=== PATIENT | female | born 1960 | race Hispanic/Latino ===

== ENCOUNTER → 2017-11-26 | Outpatient (CLI) | payer OTHER ==
[~2017-11-26] MED LIST: CYCL10 PO; DAPA10TA PO; DILT120T15 PO; ERGO500014 PO; FURO20TA4 PO; HYDR25TA PO; LINA145C PO; MELO-108 PO; METF500T PO; NAPR-1023 PO; PANT40TA25 PO; TRAZ-144 PO
[2017-11-26 16:52] LABS: BASOPHILS % (AUTO) 0.9 % (0.0-5.0); EOSINOPHILS % (AUTO) 6.6 % (0.0-8.0); HEMATOCRIT 39.1 % (36-48); LYMPHOCYTES % (AUTO) 27.8 % (21.0-51.0); MEAN CORPUSCULAR HEMOGLOBIN 30.7 pg (27.0-33.0); MEAN CORPUSCULAR HGB CONC 33.5 g/dL (32.0-36.0); MEAN CORPUSCULAR VOLUME 91.8 fL (79-99); MONOCYTES % (AUTO) 5.6 % (3.0-13.0); NEUTROPHILS % (AUTO) 59.1 % (40.0-77.0); PLATELET COUNT (AUTO) 407 K/uL (130-400); RED BLOOD CELL COUNT(AUTO) 4.26 MIL/uL (4.00-5.50); RED CELL DISTRIBUTION WIDTH 15.8 % (11.0-15.5); WHITE BLOOD COUNT (AUTO) 10.9 K/uL (4.8-10.8)
[2017-11-26 17:52] LABS: ERYTHROCYTE SEDIMENTATION RATE 25 MM/HR (0-15)
== END | disposition home or self-care (01) ==
LOC: LAB 16:23
PROVIDERS: ATTEND Orthopaedic Surgery
DX: M75.101 Unspecified rotator cuff tear or rupture of right shoulder, not specified as traumatic (principal); M25.571 Pain in right ankle and joints of right foot
CPT/HCPCS: 36415; 85025; 85651; 86141

== ENCOUNTER → 2017-12-31 | Outpatient (CLI) | payer OTHER ==
[2017-12-31 11:01] LABS: HEMOGLOBIN A1C 5.8 % (4.0-6.0)
[2017-12-31 11:12] LABS: ALBUMIN 3.9 g/dL (3.5-5.0); BILIRUBIN,TOTAL 0.3 mg/dL (0.2-1.0); CREATININE 0.6 mg/dL (0.5-1.5); POTASSIUM 3.5 mmol/L (3.5-5.1); TOTAL PROTEIN, SERUM 7.7 g/dL (6.0-8.3)
== END | disposition home or self-care (01) ==
LOC: LAB 09:42
PROVIDERS: ATTEND Internal Medicine
DX: M25.561 Pain in right knee (principal); M25.562 Pain in left knee; I10 Essential (primary) hypertension; E11.9 Type 2 diabetes mellitus without complications; E78.00 Pure hypercholesterolemia, unspecified; E55.9 Vitamin D deficiency, unspecified
CPT/HCPCS: 36415; 73560; 80053; 80061; 82043; 82306; 82570; 83036

== ENCOUNTER → 2018-01-07 | Outpatient (CLI) | payer OTHER | END | disposition home or self-care (01) | LOC: RAH 11:21 | PROVIDERS: ATTEND Internal Medicine | DX: M16.11 Unilateral primary osteoarthritis, right hip (principal); M17.0 Bilateral primary osteoarthritis of knee; G89.29 Other chronic pain | CPT/HCPCS: 73502; 73560 ==

== ENCOUNTER 2018-01-31 11:20 | Inpatient (IN) | payer OTHER ==
[~2018-01-31] VITALS: Ht 170.2 cm; Wt 96.8 kg
[~2018-01-31 11:20] MED LIST changes: -TRAZ-144 PO; +TRAZ-185 PO
[2018-01-31] MEDS ORDERED: HYDROCODONE/ACETAMINOPHEN 5/325 MG TAB ONE (11:48)
[2018-01-31 12:02] LABS: BASOPHILS % (AUTO) 0.5 % (0.0-5.0); HEMATOCRIT 39.3 % (36-48); LYMPHOCYTES % (AUTO) 13.4 % (21.0-51.0); MEAN CORPUSCULAR HEMOGLOBIN 30.7 pg (27.0-33.0); MEAN CORPUSCULAR HGB CONC 33.8 g/dL (32.0-36.0); MEAN CORPUSCULAR VOLUME 90.7 fL (79-99); MONOCYTES % (AUTO) 7.1 % (3.0-13.0); PLATELET COUNT (AUTO) 373 K/uL (130-400); RED BLOOD CELL COUNT(AUTO) 4.34 MIL/uL (4.00-5.50); RED CELL DISTRIBUTION WIDTH 14.4 % (11.0-15.5); WHITE BLOOD COUNT (AUTO) 14.1 K/uL (4.8-10.8)
[2018-01-31 12:21] LABS: CREATININE 0.6 mg/dL (0.5-1.5)
[2018-01-31 12:23] LABS: POTASSIUM 2.9 mmol/L (3.5-5.1)
[2018-01-31 12:28] LABS: HIGH SENSITIVITY CRP 9.21 mg/L (0.0-3.0); URIC ACID 5.6 mg/dL (2.6-7.2)
[2018-01-31] MEDS ORDERED: POTASSIUM BICARB/CIT AC 25 MEQ TABLET.EFF ONE (12:54)
[2018-01-31 13:06] LABS: ERYTHROCYTE SEDIMENTATION RATE 28 MM/HR (0-15)
[2018-01-31] MEDS ORDERED: LIDOCAINE/PRILOCAINE CREAM 5GM TUBE TP ONE (14:20)
[2018-01-31] MEDS ORDERED: LIDOCAINE HCL 1% 20 ML VIAL ONE (14:34)
[2018-01-31] MEDS ORDERED: SODIUM CHLORIDE 0.9% 50 ML IV ONE (15:54)
[2018-01-31] MEDS ORDERED: CEFTRIAXONE SODIUM 1 GM ONE (15:54)
[2018-01-31] MEDS ORDERED: LEVOFLOXACIN 500 MG TABLET PO SCH (16:15)
[2018-01-31] MEDS ORDERED: POTASSIUM CHLORIDE 10% ELIXIR 20 MEQ/15 ML UDCUP PO PRN (16:30)
[2018-01-31] MEDS ORDERED: VANCOMYCIN PROTOCOL PER PHARMACY IV PRN (16:30)
[2018-01-31] MEDS ORDERED: ACETAMINOPHEN-CODEINE 300/30MG TAB PO PRN (16:30)
[2018-01-31] MEDS ORDERED: MAG HYDROX/AL HYDROX/SIMETH ES 30 ML SUSP UDCUP PO PRN (16:30)
[2018-01-31] MEDS ORDERED: ONDANSETRON HCL MDV 20ML 2 MG/ML VIAL IV PRN (16:30)
[2018-01-31] MEDS ORDERED: POTASSIUM CHLORIDE 20 MEQ ERTAB PO PRN (16:30)
[2018-01-31] MEDS: LEVOFLOXACIN 500 MG/D5W 100 ML 100 ML IV SCH (16:30)
[2018-01-31] MEDS ORDERED: NITROGLYCERIN 0.4 MG SL TAB SL PRN (16:30)
[2018-01-31] MEDS ORDERED: LACTULOSE 20 GM/30 ML UDCUP PO PRN (16:30)
[2018-01-31] MEDS ORDERED: MORPHINE SULFATE 4 MG/1ML SYG IV PRN (16:30)
[2018-01-31] MEDS ORDERED: GUAIFENESIN-DM 200/20 MG 10 ML PO PRN (16:30)
[2018-01-31] MEDS ORDERED: HYDRALAZINE HCL 20 MG/ML VIAL IV PRN (16:30)
[2018-01-31] MEDS ORDERED: ACETAMINOPHEN 325 MG TAB PO PRN ×2 (16:30)
[2018-01-31] MEDS ORDERED: LEVOFLOXACIN 500 MG/D5W 100 ML 100 ML ONE (17:17)
[2018-01-31] MEDS ORDERED: ONDANSETRON HCL MDV 20ML 2 MG/ML VIAL ONE (17:32)
[2018-01-31] MEDS ORDERED: MORPHINE SULFATE 4 MG/1ML SYG ONE ×2 (17:33→18:58)
[2018-01-31] MEDS ORDERED: VANCOMYCIN 1GM+NS 250ML 250 ML IV SCH (18:00)
[2018-01-31] MEDS ORDERED: LIDOCAINE 1%-EPI 1:100,000 20 ML VIAL IJ ONE (18:03)
[2018-01-31 19:25] VITALS: BP 131/69
[2018-01-31 20:28] LABS: APPEARANCE BODY FLUID CLOUDY (CLEAR); COLOR,BODY FLUID LT YELLOW (LT YELLOW); SPECIMENTYPE,BODY FLUID SYNOVIAL FLUID; TOTAL VOLUME,BODY FLUID 20 mL
[2018-01-31] MEDS ORDERED: COMPOUND IV REFRIGERATED 1 EACH IVSOLN MISC PRN (20:30)
[2018-01-31 20:41] LABS: BODY FLUID RBC 250 /cu. mm.; BODY FLUID WBC 33300 /cu. mm.
[2018-01-31 20:42] LABS: GLUCOSE,BODY FLUID 66 mg/dL (1-40)
[2018-01-31 20:54] LABS: BF LYMPHOCYTE 1 %
[2018-01-31] MEDS: VANCOMYCIN 1.5 GM in SODIUM CHLORIDE 0.9% 250 ML IV SCH (21:14)
[2018-01-31] MEDS: FAMOTIDINE 20MG TAB 20 MG TAB PO SCH (21:18)
[2018-01-31] MEDS: NAPROXEN 500 MG TABLET PO SCH (21:18)
[2018-01-31 23:14] LABS: CRYSTALS, SYNOVIAL FLUID SEE SEPARATE REPORT
[2018-02-01] VITALS (29 sets, daily range): BP systolic 91–138; BP diastolic 51–79
[2018-02-01 05:30] LABS: HEMATOCRIT 36.5 % (36-48); MEAN CORPUSCULAR HEMOGLOBIN 31.6 pg (27.0-33.0); MEAN CORPUSCULAR HGB CONC 34.4 g/dL (32.0-36.0); MEAN CORPUSCULAR VOLUME 91.7 fL (79-99); PLATELET COUNT (AUTO) 335 K/uL (130-400); RED BLOOD CELL COUNT(AUTO) 3.98 MIL/uL (4.00-5.50); RED CELL DISTRIBUTION WIDTH 14.5 % (11.0-15.5); WHITE BLOOD COUNT (AUTO) 9.5 K/uL (4.8-10.8)
[2018-02-01 05:40] LABS: CREATININE 0.7 mg/dL (0.5-1.5)
[2018-02-01 05:47] LABS: INR 0.91 (0.85-1.15); PROTHROMBIN TIME 9.4 SEC (9.6-11.6)
[2018-02-01] MEDS: MORPHINE SULFATE 4 MG/1ML SYG IV PRN (06:03)
[2018-02-01] MEDS: POTASSIUM CHLORIDE 20MEQ/100ML 100 ML IV PRN ×2 (06:16→13:27)
[2018-02-01] MEDS: LIDOCAINE HCL-MPF 1% 2ML VIAL IVP PRN ×2 (06:16→13:27)
[2018-02-01] MEDS: SODIUM CHLORIDE 0.9% 1000ML 1,000 ML IV SCH ×3 (06:17→17:36)
[2018-02-01] MEDS: INSULIN HUMULIN R 100 UNIT/ML 3ML SQ SCH ×4 (07:30→21:00)
[2018-02-01] MEDS: FAMOTIDINE 20MG TAB 20 MG TAB PO SCH ×2 (09:00→20:27)
[2018-02-01] MEDS ORDERED: ENOXAPARIN SODIUM 40 MG/0.4 ML SYRINGE SQ SCH (09:00)
[2018-02-01] MEDS: VANCOMYCIN 1.5 GM in SODIUM CHLORIDE 0.9% 250 ML IV SCH ×3 (09:00→20:28)
[2018-02-01] MEDS: NAPROXEN 500 MG TABLET PO SCH ×2 (09:00→20:27)
[2018-02-01] MEDS ORDERED: FENTANYL CITRATE PF 50 MCG/1 ML 2ML VIAL ONE (10:35)
[2018-02-01] MEDS ORDERED: SUB TO ALBUTEROL 2.5MG/3ML NEBULES PER P&T IH ONE (11:26)
[2018-02-01] MEDS ORDERED: KETOROLAC TROMETHAMINE 30MG/ML ONE (11:57)
[2018-02-01] MEDS ORDERED: MEPERIDINE-PF 25 MG/ML SYG ONE (12:19)
[2018-02-01] MEDS: LEVOFLOXACIN 500 MG/D5W 100 ML 100 ML IV SCH (16:22)
[2018-02-01] MEDS: ACETAMINOPHEN-CODEINE 300/30MG TAB PO PRN (20:34)
[2018-02-01] MEDS: ENOXAPARIN SODIUM 40 MG/0.4 ML SYRINGE SQ SCH (20:37)
[2018-02-02] VITALS (7 sets, daily range): BP systolic 104–124; BP diastolic 58–72
[2018-02-02] MEDS: SODIUM CHLORIDE 0.9% 1000ML 1,000 ML IV SCH (03:30)
[2018-02-02] MEDS: INSULIN HUMULIN R 100 UNIT/ML 3ML SQ SCH ×4 (05:42→20:27)
[2018-02-02] MEDS: ACETAMINOPHEN-CODEINE 300/30MG TAB PO PRN ×2 (09:10→16:25)
[2018-02-02] MEDS: NAPROXEN 500 MG TABLET PO SCH ×2 (09:11→22:33)
[2018-02-02] MEDS: FAMOTIDINE 20MG TAB 20 MG TAB PO SCH ×2 (09:11→22:33)
[2018-02-02] MEDS: ENOXAPARIN SODIUM 40 MG/0.4 ML SYRINGE SQ SCH (09:11)
[2018-02-02] MEDS: VANCOMYCIN 1.5 GM in SODIUM CHLORIDE 0.9% 250 ML IV SCH ×2 (09:27→22:34)
[2018-02-02 10:54] LABS: HEMATOCRIT 35.8 % (36-48); MEAN CORPUSCULAR HGB CONC 34.5 g/dL (32.0-36.0); MEAN CORPUSCULAR VOLUME 92.7 fL (79-99); PLATELET COUNT (AUTO) 338 K/uL (130-400); RED BLOOD CELL COUNT(AUTO) 3.87 MIL/uL (4.00-5.50); RED CELL DISTRIBUTION WIDTH 14.6 % (11.0-15.5); WHITE BLOOD COUNT (AUTO) 10.1 K/uL (4.8-10.8)
[2018-02-02] MEDS ORDERED: CEFTRIAXONE 1GM/D5W 50ML 50 ML IV SCH (14:30)
[2018-02-02] MEDS ORDERED: CEFTRIAXONE SODIUM 1 GM IVP SCH (14:30)
[2018-02-02] MEDS: MORPHINE SULFATE 4 MG/1ML SYG IV PRN (22:41)
[2018-02-03 03:00] VITALS: BP 116/68
[2018-02-03] MEDS: INSULIN HUMULIN R 100 UNIT/ML 3ML SQ SCH ×2 (07:30→11:30)
[2018-02-03 08:00] VITALS: BP 126/76
[2018-02-03] MEDS: NAPROXEN 500 MG TABLET PO SCH (08:59)
[2018-02-03] MEDS: ENOXAPARIN SODIUM 40 MG/0.4 ML SYRINGE SQ SCH (09:00)
[2018-02-03] MEDS: ACETAMINOPHEN-CODEINE 300/30MG TAB PO PRN (09:00)
[2018-02-03] MEDS: FAMOTIDINE 20MG TAB 20 MG TAB PO SCH (09:00)
[2018-02-03] MEDS: VANCOMYCIN 1.5 GM in SODIUM CHLORIDE 0.9% 250 ML IV SCH (09:11)
[2018-02-03 11:53] LABS: INR 0.88 (0.85-1.15); PARTIAL THROMBOPLASTIN TIME 29.3 SEC (26.3-35.5); PROTHROMBIN TIME 9.3 SEC (9.6-11.6)
[2018-02-03 11:54] VITALS: BP 118/74
[2018-02-03 16:00] VITALS: BP 134/69
== END 2018-02-03 17:46 | disposition home or self-care (01) | DRG 550 ==
LOC: EDH 11:20 → EDHIP 16:04 → OBSVTOIN 16:04 → 4AH 18:19
PROVIDERS: ADMIT Internal Medicine; ATTEND Internal Medicine
PROC: 0S9D3ZZ Drainage of Left Knee Joint, Percutaneous Approach (ICD-10-PCS; principal; 2018-01-31)
PROC: 3E1U38Z Irrigation of Joints using Irrigating Substance, Percutaneous Approach (ICD-10-PCS; 2018-02-01)
DX: M00.9 Pyogenic arthritis, unspecified (principal); E11.9 Type 2 diabetes mellitus without complications; M19.90 Unspecified osteoarthritis, unspecified site; E66.9 Obesity, unspecified; M25.462 Effusion, left knee; E87.6 Hypokalemia; I10 Essential (primary) hypertension; I25.10 Atherosclerotic heart disease of native coronary artery without angina pectoris; Z90.710 Acquired absence of both cervix and uterus; Z68.33 Body mass index [BMI] 33.0-33.9, adult; Z88.8 Allergy status to other drugs, medicaments and biological substances; Z83.3 Family history of diabetes mellitus; Z80.42 Family history of malignant neoplasm of prostate
CPT/HCPCS: 36415; 73562; 80048; 80202; 82945; 82948; 84132; 84550; 85025; 85027; 85610; 85651; 85730; 86141; 87070; 87071; 87076; 87205; 89051; 89060; 93971; A4218; A4606; J0696; J1650; J1885; J1956; J2175; J2270; J3010; J3370; J3480; J3490; J7030

== ENCOUNTER → 2018-02-12 | Outpatient (CLI) | payer OTHER ==
[2018-02-12 10:27] LABS: EOSINOPHILS % (AUTO) 7.3 % (0.0-8.0); HEMATOCRIT 43.4 % (36-48); LYMPHOCYTES % (AUTO) 32.5 % (21.0-51.0); MEAN CORPUSCULAR HEMOGLOBIN 30.6 pg (27.0-33.0); MEAN CORPUSCULAR HGB CONC 33.3 g/dL (32.0-36.0); MEAN CORPUSCULAR VOLUME 92.1 fL (79-99); MONOCYTES % (AUTO) 5.8 % (3.0-13.0); NEUTROPHILS % (AUTO) 53.4 % (40.0-77.0); NUCLEATED RED BLOOD CELLS 0.1 % (0.0-0.19); PLATELET COUNT (AUTO) 481 K/uL (130-400); RED BLOOD CELL COUNT(AUTO) 4.71 MIL/uL (4.00-5.50); RED CELL DISTRIBUTION WIDTH 14.8 % (11.0-15.5); WHITE BLOOD COUNT (AUTO) 9.8 K/uL (4.8-10.8)
[2018-02-12 10:37] LABS: BILIRUBIN,TOTAL 0.3 mg/dL (0.2-1.0); CREATININE 0.6 mg/dL (0.5-1.5); CRP QUANTITATIVE 2.3 mg/L (0.00-9.0); POTASSIUM 3.1 mmol/L (3.5-5.1); TOTAL PROTEIN, SERUM 7.9 g/dL (6.0-8.3)
[2018-02-12 11:35] LABS: ERYTHROCYTE SEDIMENTATION RATE 26 MM/HR (0-15)
== END | disposition home or self-care (01) ==
LOC: LAB 09:43
PROVIDERS: ATTEND Internal Medicine
DX: I10 Essential (primary) hypertension (principal); E87.6 Hypokalemia; M17.12 Unilateral primary osteoarthritis, left knee; M05.79 Rheumatoid arthritis with rheumatoid factor of multiple sites without organ or systems involvement
CPT/HCPCS: 36415; 80053; 83735; 85025; 85651; 86140; 86431

== ENCOUNTER → 2018-03-03 | Outpatient (CLI) | payer OTHER ==
[2018-03-05 11:20] LABS: HEPATITIS A ANTIBODY IGM Negative (Negative); HEPATITIS B CORE IGM Positive (Negative); HEPATITIS Bs ANTIGEN SCREEN P Negative (Negative)
== END | disposition home or self-care (01) ==
LOC: LAB 10:00
PROVIDERS: ATTEND Internal Medicine
DX: M05.89 Other rheumatoid arthritis with rheumatoid factor of multiple sites (principal); Z79.899 Other long term (current) drug therapy
CPT/HCPCS: 36415; 80074

== ENCOUNTER 2018-03-26 23:03 | Emergency (ER) | payer OTHER | END 2018-03-26 23:43 | disposition home or self-care (01) | LOC: EDH 23:03 | DX: S63.592A Other specified sprain of left wrist, initial encounter (principal); S63.8X2A Sprain of other part of left wrist and hand, initial encounter; S80.01XA Contusion of right knee, initial encounter; E11.9 Type 2 diabetes mellitus without complications; I10 Essential (primary) hypertension; Z98.890 Other specified postprocedural states; Z90.49 Acquired absence of other specified parts of digestive tract; Z88.8 Allergy status to other drugs, medicaments and biological substances; W18.39XA Other fall on same level, initial encounter; Y93.01 Activity, walking, marching and hiking; Y92.89 Other specified places as the place of occurrence of the external cause; Y99.8 Other external cause status | CPT/HCPCS: 73110; 73562 ==

== ENCOUNTER → 2018-04-09 | Outpatient (CLI) | payer OTHER ==
[2018-04-09 12:11] LABS: BASOPHILS % (AUTO) 1.3 % (0.0-5.0); EOSINOPHILS % (AUTO) 10.1 % (0.0-8.0); HEMATOCRIT 40.2 % (36-48); LYMPHOCYTES % (AUTO) 31.9 % (21.0-51.0); MEAN CORPUSCULAR HEMOGLOBIN 31.3 pg (27.0-33.0); MEAN CORPUSCULAR VOLUME 92.2 fL (79-99); NEUTROPHILS % (AUTO) 48.7 % (40.0-77.0); PLATELET COUNT (AUTO) 368 K/uL (130-400); RED BLOOD CELL COUNT(AUTO) 4.36 MIL/uL (4.00-5.50); RED CELL DISTRIBUTION WIDTH 14.3 % (11.0-15.5); WHITE BLOOD COUNT (AUTO) 8.5 K/uL (4.8-10.8)
[2018-04-09 12:26] LABS: ALBUMIN 3.6 g/dL (3.5-5.0); BILIRUBIN,DIRECT 0.1 mg/dL (0.0-0.3); BILIRUBIN,TOTAL 0.3 mg/dL (0.2-1.0); TOTAL PROTEIN, SERUM 7.2 g/dL (6.0-8.3)
== END | disposition home or self-care (01) ==
LOC: LAB 11:09
PROVIDERS: ATTEND Internal Medicine
DX: M05.89 Other rheumatoid arthritis with rheumatoid factor of multiple sites (principal)
CPT/HCPCS: 36415; 80076; 85025

== ENCOUNTER → 2018-04-13 | Outpatient (CLI) | payer OTHER | END | disposition home or self-care (01) | LOC: RAH 15:28 | DX: Z12.31 Encounter for screening mammogram for malignant neoplasm of breast (principal) | CPT/HCPCS: 77067 ==

== ENCOUNTER → 2018-05-01 | Outpatient (CLI) | payer OTHER ==
[2018-05-01 09:07] LABS: HEMOGLOBIN A1C 5.9 % (4.0-6.0)
[2018-05-01 09:17] LABS: ALBUMIN 3.7 g/dL (3.5-5.0); BILIRUBIN,TOTAL 0.2 mg/dL (0.2-1.0); CREATININE 0.6 mg/dL (0.5-1.5); TOTAL PROTEIN, SERUM 7.3 g/dL (6.0-8.3)
[2018-05-01 09:45] LABS: POTASSIUM 2.8 mmol/L (3.5-5.1)
== END | disposition home or self-care (01) ==
LOC: RAH 08:34
PROVIDERS: ATTEND Internal Medicine
DX: S09.90XA Unspecified injury of head, initial encounter (principal); I10 Essential (primary) hypertension; E78.00 Pure hypercholesterolemia, unspecified; E11.9 Type 2 diabetes mellitus without complications; X58.XXXA Exposure to other specified factors, initial encounter; Y93.89 Activity, other specified; Y92.89 Other specified places as the place of occurrence of the external cause; Y99.8 Other external cause status
CPT/HCPCS: 36415; 70450; 80053; 80061; 83036

== ENCOUNTER → 2018-07-28 | Outpatient (CLI) | payer OTHER ==
[2018-07-28 14:38] LABS: BASOPHILS % (AUTO) 0.9 % (0.0-5.0); EOSINOPHILS % (AUTO) 9.9 % (0.0-8.0); HEMATOCRIT 39.6 % (36-48); LYMPHOCYTES % (AUTO) 20.6 % (21.0-51.0); MEAN CORPUSCULAR HGB CONC 33.1 g/dL (32.0-36.0); MEAN CORPUSCULAR VOLUME 93.7 fL (79-99); NEUTROPHILS % (AUTO) 61.6 % (40.0-77.0); PLATELET COUNT (AUTO) 351 K/uL (130-400); RED BLOOD CELL COUNT(AUTO) 4.23 MIL/uL (4.00-5.50); RED CELL DISTRIBUTION WIDTH 14.2 % (11.0-15.5); WHITE BLOOD COUNT (AUTO) 8.7 K/uL (4.8-10.8)
[2018-07-28 14:52] LABS: HEMOGLOBIN A1C 5.5 % (4.0-6.0)
[2018-07-28 14:54] LABS: ALBUMIN 3.3 g/dL (3.5-5.0); BILIRUBIN,TOTAL 0.2 mg/dL (0.2-1.0); CREATININE 0.7 mg/dL (0.5-1.5); POTASSIUM 3.3 mmol/L (3.5-5.1); TOTAL PROTEIN, SERUM 7.2 g/dL (6.0-8.3)
== END | disposition home or self-care (01) ==
LOC: LAB 10:38
PROVIDERS: ATTEND Internal Medicine
DX: I10 Essential (primary) hypertension (principal); E11.9 Type 2 diabetes mellitus without complications; M05.89 Other rheumatoid arthritis with rheumatoid factor of multiple sites; Z79.899 Other long term (current) drug therapy
CPT/HCPCS: 36415; 80053; 83036; 85025

== ENCOUNTER 2018-08-13 11:42 | Emergency (ER) | payer OTHER ==
[2018-08-13] MEDS ORDERED: OCTYL 2-CYANOACRYLATE 1 EACH TP ONE (13:37)
== END 2018-08-13 14:11 | disposition home or self-care (01) ==
LOC: EDH 11:42
DX: S01.81XA Laceration without foreign body of other part of head, initial encounter (principal); S80.211A Abrasion, right knee, initial encounter; E11.9 Type 2 diabetes mellitus without complications; I10 Essential (primary) hypertension; Z90.49 Acquired absence of other specified parts of digestive tract; Z88.8 Allergy status to other drugs, medicaments and biological substances; Z98.890 Other specified postprocedural states; W18.39XA Other fall on same level, initial encounter; Y93.01 Activity, walking, marching and hiking; Y92.89 Other specified places as the place of occurrence of the external cause; Y99.8 Other external cause status
CPT/HCPCS: 12051; 73562

== ENCOUNTER → 2018-08-25 | Outpatient (CLI) | payer OTHER ==
[2018-08-25 10:09] LABS: BASOPHILS % (AUTO) 2.3 % (0.0-5.0); EOSINOPHILS % (AUTO) 9.1 % (0.0-8.0); HEMATOCRIT 39.7 % (36-48); LYMPHOCYTES % (AUTO) 24.1 % (21.0-51.0); MEAN CORPUSCULAR HEMOGLOBIN 30.7 pg (27.0-33.0); MEAN CORPUSCULAR HGB CONC 33.3 g/dL (32.0-36.0); MEAN CORPUSCULAR VOLUME 92.2 fL (79-99); MONOCYTES % (AUTO) 7.2 % (3.0-13.0); NEUTROPHILS % (AUTO) 57.3 % (40.0-77.0); NUCLEATED RED BLOOD CELLS 0.1 % (0.0-0.19); PLATELET COUNT (AUTO) 330 K/uL (130-400); RED CELL DISTRIBUTION WIDTH 14.2 % (11.0-15.5); WHITE BLOOD COUNT (AUTO) 8.2 K/uL (4.8-10.8)
[2018-08-25 10:24] LABS: ALBUMIN 3.3 g/dL (3.5-5.0); BILIRUBIN,TOTAL 0.3 mg/dL (0.2-1.0); CREATININE 0.9 mg/dL (0.5-1.5); POTASSIUM 3.4 mmol/L (3.5-5.1); TOTAL PROTEIN, SERUM 7.3 g/dL (6.0-8.3)
== END | disposition home or self-care (01) ==
LOC: LAB 09:07
PROVIDERS: ATTEND Internal Medicine
DX: M05.89 Other rheumatoid arthritis with rheumatoid factor of multiple sites (principal); K21.9 Gastro-esophageal reflux disease without esophagitis; Z79.899 Other long term (current) drug therapy
CPT/HCPCS: 36415; 80053; 82955; 85025

== ENCOUNTER → 2018-09-15 | Outpatient (CLI) | payer OTHER | END | disposition home or self-care (01) | LOC: RAH 08:43 | PROVIDERS: ATTEND Orthopaedic Surgery | DX: M17.11 Unilateral primary osteoarthritis, right knee (principal); M25.461 Effusion, right knee; K21.9 Gastro-esophageal reflux disease without esophagitis | CPT/HCPCS: 73721 ==

== ENCOUNTER → 2018-11-17 | Outpatient (CLI) | payer OTHER ==
[2018-11-17 17:34] LABS: BASOPHILS % (AUTO) 1.2 % (0.0-5.0); EOSINOPHILS % (AUTO) 12.5 % (0.0-8.0); HEMATOCRIT 41.7 % (36-48); LYMPHOCYTES % (AUTO) 23.4 % (21.0-51.0); MEAN CORPUSCULAR HEMOGLOBIN 29.6 pg (27.0-33.0); MEAN CORPUSCULAR VOLUME 92.7 fL (79-99); NEUTROPHILS % (AUTO) 54.9 % (40.0-77.0); NUCLEATED RED BLOOD CELLS 0.1 % (0.0-0.19); PLATELET COUNT (AUTO) 387 K/uL (130-400); RED CELL DISTRIBUTION WIDTH 15.3 % (11.0-15.5); WHITE BLOOD COUNT (AUTO) 10.5 K/uL (4.8-10.8)
[2018-11-17 17:50] LABS: ALBUMIN 3.7 g/dL (3.5-5.0); BILIRUBIN,TOTAL 0.2 mg/dL (0.2-1.0); CREATININE 0.7 mg/dL (0.5-1.5); POTASSIUM 3.7 mmol/L (3.5-5.1); TOTAL PROTEIN, SERUM 7.5 g/dL (6.0-8.3)
== END | disposition home or self-care (01) ==
LOC: LAB 09:46
PROVIDERS: ATTEND Internal Medicine
DX: M05.79 Rheumatoid arthritis with rheumatoid factor of multiple sites without organ or systems involvement (principal); Z79.899 Other long term (current) drug therapy
CPT/HCPCS: 36415; 80053; 85025; 86480

== ENCOUNTER → 2019-02-12 | Outpatient (CLI) | payer OTHER ==
[2019-02-12 08:34] LABS: BASOPHILS % (AUTO) 0.9 % (0.0-5.0); EOSINOPHILS % (AUTO) 8.9 % (0.0-8.0); HEMATOCRIT 39.8 % (36-48); LYMPHOCYTES % (AUTO) 23.7 % (21.0-51.0); MEAN CORPUSCULAR HEMOGLOBIN 32.4 pg (27.0-33.0); MEAN CORPUSCULAR VOLUME 95.2 fL (79-99); MONOCYTES % (AUTO) 7.8 % (3.0-13.0); NEUTROPHILS % (AUTO) 58.7 % (40.0-77.0); NUCLEATED RED BLOOD CELLS 0.1 % (0.0-0.19); PLATELET COUNT (AUTO) 330 K/uL (130-400); RED BLOOD CELL COUNT(AUTO) 4.18 MIL/uL (4.00-5.50); RED CELL DISTRIBUTION WIDTH 15.8 % (11.0-15.5); WHITE BLOOD COUNT (AUTO) 6.7 K/uL (4.8-10.8)
[2019-02-12 08:43] LABS: HEMOGLOBIN A1C 5.6 % (4.0-6.0)
[2019-02-12 08:58] LABS: ALBUMIN 3.7 g/dL (3.5-5.0); BILIRUBIN,TOTAL 0.3 mg/dL (0.2-1.0); CREATININE 0.6 mg/dL (0.5-1.5); T4 (THYROXINE) 8.9 ug/dL (4.7-13.3); THYROID STIMULATING HORMONE 2.14 uIU/mL (0.36-3.74); TOTAL PROTEIN, SERUM 7.1 g/dL (6.0-8.3)
[2019-02-12 09:03] LABS: B-TYPE NATRIURETIC PEPTIDE < 5 pg/mL (0-100)
== END | disposition home or self-care (01) ==
LOC: LAB 02-10 12:05
PROVIDERS: ATTEND Internal Medicine Cardiovascular Disease
DX: E78.5 Hyperlipidemia, unspecified (principal); E11.9 Type 2 diabetes mellitus without complications; I10 Essential (primary) hypertension
CPT/HCPCS: 36415; 80053; 80061; 83036; 83880; 84436; 84439; 84443; 84479; 84481; 85025

== ENCOUNTER → 2019-03-15 | Outpatient (CLI) | payer OTHER ==
[~2019-03-15] MED LIST changes: +REGADENOSON 0.4 MG/5 ML PF SYG IVP SCH
== END | disposition home or self-care (01) ==
LOC: RAH 03-10 08:14
PROVIDERS: ATTEND Internal Medicine Cardiovascular Disease
DX: R07.89 Other chest pain (principal)
CPT/HCPCS: 78452; 93017; 96374; A9500 ×2; J2785

== ENCOUNTER 2019-03-20 22:49 | Emergency (ER) | payer OTHER ==
[~2019-03-20 22:49] MED LIST changes: -REGADENOSON 0.4 MG/5 ML PF SYG IVP SCH
[2019-03-20] MEDS ORDERED: ONDANSETRON HCL 4 MG/2 ML VIAL ONE (23:36)
[2019-03-20] MEDS ORDERED: KETOROLAC TROMETHAMINE 30MG/ML ONE (23:36)
== END 2019-03-21 01:28 | disposition home or self-care (01) ==
LOC: EDH 22:49
DX: S00.83XA Contusion of other part of head, initial encounter (principal); S70.01XA Contusion of right hip, initial encounter; E11.9 Type 2 diabetes mellitus without complications; I10 Essential (primary) hypertension; M06.9 Rheumatoid arthritis, unspecified; Z88.8 Allergy status to other drugs, medicaments and biological substances; Z91.041 Radiographic dye allergy status; Z90.49 Acquired absence of other specified parts of digestive tract; W18.39XA Other fall on same level, initial encounter; Y93.01 Activity, walking, marching and hiking; Y92.89 Other specified places as the place of occurrence of the external cause; Y99.8 Other external cause status
CPT/HCPCS: 70450; 70486; 72125; 73552; 96374; 96375; 99284; J1885; J2405

== ENCOUNTER → 2019-05-07 | Outpatient (CLI) | payer OTHER ==
[2019-05-07 17:26] LABS: BASOPHILS % (AUTO) 0.7 % (0.0-5.0); EOSINOPHILS % (AUTO) 5.4 % (0.0-8.0); HEMATOCRIT 42.6 % (36-48); LYMPHOCYTES % (AUTO) 33.8 % (21.0-51.0); MEAN CORPUSCULAR HEMOGLOBIN 30.7 pg (27.0-33.0); MEAN CORPUSCULAR HGB CONC 32.8 g/dL (32.0-36.0); MEAN CORPUSCULAR VOLUME 93.7 fL (79-99); MONOCYTES % (AUTO) 5.8 % (3.0-13.0); NEUTROPHILS % (AUTO) 54.3 % (40.0-77.0); PLATELET COUNT (AUTO) 421 K/uL (130-400); RED BLOOD CELL COUNT(AUTO) 4.55 MIL/uL (4.00-5.50); RED CELL DISTRIBUTION WIDTH 13.8 % (11.0-15.5); WHITE BLOOD COUNT (AUTO) 8.2 K/uL (4.8-10.8)
[2019-05-07 17:47] LABS: ALBUMIN 3.8 g/dL (3.5-5.0); BILIRUBIN,TOTAL 0.2 mg/dL (0.2-1.0); CREATININE 0.7 mg/dL (0.5-1.5); POTASSIUM 3.7 mmol/L (3.5-5.1); TOTAL PROTEIN, SERUM 7.1 g/dL (6.0-8.3)
== END | disposition home or self-care (01) ==
LOC: LAB 10:48
PROVIDERS: ATTEND Internal Medicine
DX: M05.79 Rheumatoid arthritis with rheumatoid factor of multiple sites without organ or systems involvement (principal); Z79.899 Other long term (current) drug therapy
CPT/HCPCS: 36415; 80053; 85025; 86480

== ENCOUNTER → 2019-07-13 | Outpatient (CLI) | payer OTHER | END | disposition home or self-care (01) | LOC: RAH 09:57 | PROVIDERS: ATTEND Internal Medicine | DX: R60.0 Localized edema (principal) | CPT/HCPCS: 93970 ==

== ENCOUNTER → 2019-07-15 | Outpatient (CLI) | payer OTHER ==
[2019-07-15 13:55] LABS: APPEARANCE BODY FLUID SLIGHTLY CLOUDY (CLEAR); COLOR,BODY FLUID YELLOW (LT YELLOW); SPECIMENTYPE,BODY FLUID SYNOVIAL; TOTAL VOLUME,BODY FLUID 20 mL
[2019-07-15 13:56] LABS: BODY FLUID RBC 1925 /cu. mm.; BODY FLUID WBC 74 /cu. mm.
[2019-07-15 14:01] LABS: BF LYMPHOCYTE 78 %; BF MESOTHELIAL 10 %; BF MONOCYTE 2 %
[2019-07-15 21:20] LABS: CRYSTALS, SYNOVIAL FLUID SEE SEPARATE REPORT
== END | disposition home or self-care (01) ==
LOC: LAB 10:59
PROVIDERS: ATTEND Orthopaedic Surgery
DX: M25.461 Effusion, right knee (principal)
CPT/HCPCS: 87071; 87076; 87205; 89051; 89060

== ENCOUNTER → 2019-10-01 | Outpatient (CLI) | payer OTHER ==
[2019-10-01 09:34] LABS: BASOPHILS % (AUTO) 0.8 % (0.0-5.0); HEMATOCRIT 44.4 % (36-48); LYMPHOCYTES % (AUTO) 25.7 % (21.0-51.0); MEAN CORPUSCULAR HEMOGLOBIN 31.6 pg (27.0-33.0); MEAN CORPUSCULAR HGB CONC 33.7 g/dL (32.0-36.0); MEAN CORPUSCULAR VOLUME 93.8 fL (79-99); MONOCYTES % (AUTO) 7.3 % (3.0-13.0); NEUTROPHILS % (AUTO) 58.2 % (40.0-77.0); PLATELET COUNT (AUTO) 333 K/uL (130-400); RED BLOOD CELL COUNT(AUTO) 4.73 MIL/uL (4.00-5.50); RED CELL DISTRIBUTION WIDTH 14.5 % (11.0-15.5); WHITE BLOOD COUNT (AUTO) 8.4 K/uL (4.8-10.8)
[2019-10-01 09:53] LABS: INR 0.91 (0.85-1.15); PARTIAL THROMBOPLASTIN TIME 26.4 SEC (26.3-35.5); PROTHROMBIN TIME 9.6 SEC (9.6-11.6)
[2019-10-01 09:56] LABS: ALBUMIN 3.9 g/dL (3.5-5.0); BILIRUBIN,TOTAL 0.4 mg/dL (0.2-1.0); CREATININE 0.6 mg/dL (0.5-1.5); POTASSIUM 3.7 mmol/L (3.5-5.1); TOTAL PROTEIN, SERUM 7.6 g/dL (6.0-8.3)
[2019-10-01 10:13] LABS: HEMOGLOBIN A1C 5.6 % (4.0-6.0)
== END | disposition home or self-care (01) ==
LOC: LAB 08:36
PROVIDERS: ATTEND Internal Medicine
DX: Z01.818 Encounter for other preprocedural examination (principal)
CPT/HCPCS: 36415; 71046; 80053; 83036; 85025; 85610; 85730; 93005

== ENCOUNTER 2019-10-12 16:15 | Inpatient (IN) | payer OTHER ==
[~2019-10-12] VITALS: Ht 165.1 cm; Wt 96.3 kg
[~2019-10-12 16:15] MED LIST changes: -HYDR25TA PO; -METF500T PO; -NAPR-1023 PO; -TRAZ-185 PO
[2019-10-12 16:43] VITALS: BP 136/69
[2019-10-12 16:45] LABS: APPEARANCE,URINE Clear (CLEAR); BILIRUBIN,URINE Negative (NEGATIVE); COLOR,URINE Yellow (YELLOW); GLUCOSE, URINE (UA) >=1000 mg/dL (NEGATIVE); KETONES,URINE Negative (NEGATIVE); LEUKOCYTE ESTERASE ,URINE Negative (NEGATIVE); NITRATE,URINE Negative (NEGATIVE); OCCULT BLOOD,URINE Negative (NEGATIVE); PROTEIN,URINE Negative (NEGATIVE); UROBILINOGEN,URINE 0.2 mg/dL (0.2-1.0)
[2019-10-12] MEDS ORDERED: NAPR-1023 PO (17:13)
[2019-10-12] MEDS ORDERED: METF500S7 PO (17:13)
[2019-10-12] MEDS ORDERED: MUPIROCIN (17:13)
[2019-10-12] MEDS ORDERED: TRAM50TA4 PO (17:13)
[2019-10-12] MEDS ORDERED: TRAZ-185 PO (17:13)
[2019-10-12] MEDS ORDERED: DAPA10TA PO (17:13)
[2019-10-12] MEDS ORDERED: LEFL20TA18 PO (17:13)
[2019-10-12] MEDS ORDERED: CLON1TAB12 PO (17:21)
[2019-10-13] VITALS (19 sets, daily range): BP systolic 99–133; BP diastolic 58–77
[2019-10-13] MEDS: CEFAZOLIN SODIUM 1 GM VIAL IVP SCH ×3 (06:00→22:36)
[2019-10-13] MEDS ORDERED: SODIUM CHLORIDE 0.9% 1000ML 1,000 ML IV ONE (10:14)
[2019-10-13] MEDS ORDERED: ACETAMINOPHEN EXTRA STRENGTH 500 MG TABLET ONE (11:50)
[2019-10-13] MEDS ORDERED: ACETAMINOPHEN EXTRA STRENGTH 500 MG TABLET PO SCH (12:15)
[2019-10-13] MEDS ORDERED: METOCLOPRAMIDE 10 MG/2 ML VIAL ONE (12:29)
[2019-10-13] MEDS ORDERED: CELECOXIB 200 MG CAP ONE (12:29)
[2019-10-13] MEDS ORDERED: KETOROLAC TROMETHAMINE 15MG/ML ONE (12:29)
[2019-10-13] MEDS ORDERED: CEFAZOLIN SODIUM 1 GM VIAL ONE (12:54)
[2019-10-13] MEDS ORDERED: TRANEXAMIC ACID 1000MG/10ML ONE ×2 (12:55→16:53)
[2019-10-13] MEDS ORDERED: LIDOCAINE PF 2% 5ML ABBOJECT ONE (13:14)
[2019-10-13] MEDS ORDERED: PROPOFOL 10 MG/ML 20ML VIAL IV ONE (13:14)
[2019-10-13] MEDS ORDERED: MIDAZOLAM HCL 1 MG/ML 2ML VIAL ONE ×2 (13:15→13:23)
[2019-10-13] MEDS ORDERED: ONDANSETRON HCL 4 MG/2 ML VIAL ONE (13:15)
[2019-10-13] MEDS ORDERED: ROCURONIUM 10MG/1ML SYR 10 MG/ML ML ONE (13:15)
[2019-10-13] MEDS ORDERED: KETAMINE 50MG/ML SYRINGE 50 MG/ML DISP.SYRIN IV ONE (13:18)
[2019-10-13] MEDS ORDERED: ROPIVACAINE 0.5% 5MG/ML 30ML IJ ONE (13:18)
[2019-10-13] MEDS ORDERED: DEXAMETHASONE SOD PHOSPHATE 10MG/ML 1ML VIAL ONE (14:09)
[2019-10-13] MEDS ORDERED: SUB TO ALBUTEROL 2.5MG/3ML NEBULES PER P&T IH ONE (14:21)
[2019-10-13] MEDS ORDERED: MEPERIDINE-PF 25 MG/ML SYG ONE ×5 (14:23→17:08)
[2019-10-13] MEDS ORDERED: PHENYLEPHRINE HCL 10 MG/ML 1ML VIAL IV ONE (14:38)
[2019-10-13] MEDS ORDERED: GLYCOPYRROLATE 1 MG/5 ML SYRINGE ONE (16:10)
[2019-10-13] MEDS ORDERED: NEOSTIGMINE 5MG/5ML SYR IV ONE (16:11)
[2019-10-13] MEDS ORDERED: DiphenhydrAMINE HCL 50 MG/ML VIAL IVP PRN (16:15)
[2019-10-13] MEDS ORDERED: CALCIUM CARBONATE 500 MG TABLET PO PRN (16:15)
[2019-10-13] MEDS: ACETAMINOPHEN EXTRA STRENGTH 500 MG TABLET PO SCH (16:15)
[2019-10-13] MEDS ORDERED: OXYCODONE HCL 5 MG TAB PO PRN (16:15)
[2019-10-13] MEDS ORDERED: LIDOCAINE HCL-MPF 1% 2ML VIAL IV PRN (16:15)
[2019-10-13] MEDS ORDERED: TRAMADOL HCL 50 MG TABLET PO PRN (16:15)
[2019-10-13] MEDS ORDERED: POTASSIUM CHLORIDE 20 MEQ ERTAB PO PRN (16:15)
[2019-10-13] MEDS ORDERED: POTASSIUM CHLORIDE 10% ELIXIR 20 MEQ/15 ML UDCUP PO PRN (16:15)
[2019-10-13] MEDS ORDERED: ONDANSETRON HCL 4 MG/2 ML VIAL IVP PRN (16:15)
[2019-10-13] MEDS ORDERED: FERROUS FUMARATE 324 MG TABLET PO PRN (16:15)
[2019-10-13] MEDS ORDERED: POTASSIUM CHLORIDE 20MEQ/100ML 100 ML IV PRN (16:15)
[2019-10-13] MEDS: INSULIN HUMULIN R 100 UNIT/ML 3ML SQ SCH ×2 (16:30→21:00)
[2019-10-13] MEDS: SODIUM CHLORIDE 0.9% 1000ML 1,000 ML IV SCH (17:55)
[2019-10-13] MEDS: KETOROLAC TROMETHAMINE 15MG/ML IV PRN (18:18)
--- NOTE | 2019-10-13 22:30 | NUR ---
PATIENT AWAKE AND ALERT. MEDICATED FOR COMPLAINTS OF PAIN TO RIGHT KNEE. PATIENT DANGLED FEET OVER BED BUT PATIENT STATES HEAVINESS AND NUMBNESS TO RIGHT LOWER EXTREMITY. BEDREST AT THIS TIME. SIDE RAILS UP X3 CALL LIGHT WITHIN REACH. WILL CONTINUE TO BE OBSERVED. Addendum: 10/14/19 at 0318 by ROSIO LUCIANO RN RN Amended: Links added.
[2019-10-13] MEDS: ASPIRIN 81MG TAB.CHEW PO SCH (22:36)
[2019-10-13] MEDS: PREGABALIN 25 MG CAP PO SCH (22:37)
[2019-10-13] MEDS: CLONAZEPAM 1 MG TABLET PO SCH (22:37)
[2019-10-13] MEDS: CELECOXIB 200 MG CAP PO SCH (22:37)
--- NOTE | 2019-10-14 | NUR ---
ROUNDS PATIENT IN BED WITH OU CLOSED. EASILY AROUSED. NO COMPLAINTS OF PAIN VOICED AT THIS TIME. VITALS STABLE. AFEBRILE. TOLERATING IVF WELL. NS INFUSING AT 100ML/HR. NO ADVERSE REACTION TO ANCEF. RESP EVEN AND UNLABORED. NO SOB NOTED. ON ROOM AIR. VOIDING WITHOUT DIFFICULTY. BED JARAMILLO OFFERED Q2H AND PRN. PHILOMENA DRESSING IN PLACE TO RIGHT KNEE. SPOUSE AT BEDSIDE. CALL LIGHT WITHIN REACH. WILL CONTINUE TO BE OBSERVED. Addendum: 10/14/19 at 0155 by ROSIO LUCIANO RN RN Amended: Links added.
[2019-10-14] MEDS: ACETAMINOPHEN EXTRA STRENGTH 500 MG TABLET PO SCH ×4 (00:22→23:45)
[2019-10-14] MEDS: SODIUM CHLORIDE 0.9% 1000ML 1,000 ML IV SCH ×2 (02:03→12:03)
[2019-10-14 04:00] VITALS: BP 108/70
[2019-10-14 04:19] LABS: HEMATOCRIT 34.5 % (36-48); MEAN CORPUSCULAR HEMOGLOBIN 29.6 pg (27.0-33.0); MEAN CORPUSCULAR HGB CONC 32.2 g/dL (32.0-36.0); PLATELET COUNT (AUTO) 329 K/uL (130-400); RED BLOOD CELL COUNT(AUTO) 3.75 MIL/uL (4.00-5.50); RED CELL DISTRIBUTION WIDTH 14.2 % (11.0-15.5); WHITE BLOOD COUNT (AUTO) 11.2 K/uL (4.8-10.8)
[2019-10-14 04:33] LABS: CREATININE 0.6 mg/dL (0.5-1.5); POTASSIUM 3.9 mmol/L (3.5-5.1)
[2019-10-14] MEDS: INSULIN HUMULIN R 100 UNIT/ML 3ML SQ SCH ×4 (05:23→21:00)
[2019-10-14] MEDS: CEFAZOLIN SODIUM 1 GM VIAL IVP SCH (05:23)
[2019-10-14] MEDS: OXYCODONE HCL 5 MG TAB PO PRN ×3 (08:21→21:47)
[2019-10-14 08:27] VITALS: BP 122/75
[2019-10-14] MEDS: DAPAGLIFLOZIN PROPANEDIOL 10 MG PO SCH ×2 (09:00→18:00)
[2019-10-14] MEDS: Leflunomide 20 MG PO SCH (09:00)
[2019-10-14] MEDS ORDERED: MUPIROCIN OINTMENT 22 GM TUBE TP SCH (09:00)
[2019-10-14] MEDS: Dapagliflozin Propanediol (Farxiga) 10 MG PO SCH (09:00)
[2019-10-14] MEDS: FUROSEMIDE 20 MG TABLET PO SCH (10:38)
[2019-10-14] MEDS: ASPIRIN 81MG TAB.CHEW PO SCH ×2 (10:38→20:43)
[2019-10-14] MEDS: METFORMIN HCL 500 MG TABLET PO SCH (10:39)
[2019-10-14] MEDS: CELECOXIB 200 MG CAP PO SCH ×2 (10:39→20:43)
[2019-10-14] MEDS: PREGABALIN 25 MG CAP PO SCH ×2 (10:39→20:43)
[2019-10-14] MEDS: PANTOPRAZOLE SODIUM 40 MG TABLET.DR PO SCH (10:39)
[2019-10-14] MEDS: TRAZODONE HCL 50 MG TAB PO SCH (10:40)
[2019-10-14] MEDS: DILTIAZEM HCL 120 MG CAP.SR.24H PO SCH (10:40)
[2019-10-14] MEDS: POLYETHYLENE GLYCOL 3350 17 GM POWD.PACK PO SCH (11:18)
[2019-10-14] MEDS: KETOROLAC TROMETHAMINE 15MG/ML IV PRN (11:27)
[2019-10-14 11:35] VITALS: BP 116/70
[2019-10-14] MEDS: IPRATROPIUM/ALBUTEROL SULFATE 3 ML SOLUTION IH PRN ×3 (12:01→23:23)
--- NOTE | 2019-10-14 12:16 | NUR ---
MTP CM met with pt, currently very sleepy, called spouse on facesheet, spoke to Michael [phone], discussed dc plans. Pt is independent prior to surgery, lives at home with spouse, children, and grandchildren. Denies any equipments/services. Feels safe to go back home, spouse and family able to assist with transportations and needs. Agreeable for home w/HH and DME, spouse gave telephone consent MARYANN for [facility], [facility], [facility], discussed DME might be difficult to arrange due to pt's insurance, willing to pay privately if necessary. DC plan to home w/HH and DME. CM to cont to follow up. Faxed order, clinicals to [facility] and [facility] [facility], confirmation received. CM to cont to follow up. Addendum: 10/14/19 at 1219 by JOSIE ROQUE LVN CM Amended: Links added.
--- NOTE | 2019-10-14 13:42 | NUR ---
DAVIS Note: Renetta's approval for walker CM spoke to Kimberly Sloan[facility] pt will pay privately for standard walker no wheels, has approval, will deliver DME today. Pt pending delivery of standard walker no wheels in room. Primary nurse aware. CM to cont to follow up.
--- NOTE | 2019-10-14 13:43 | NUR ---
CM Note: [facility] pending approval CM called [facility], spoke to Heike stated Shirin currently out to lunch, will inform once Shirin return. Pt pending approval. Primary nurse aware. CM to cont to follow up.
--- NOTE | 2019-10-14 16:00 | NUR ---
CM Note: [facility] pending approval CM spoke to Shirin, currently trying to expedite referral w/[employer] and [employer]. Pt pending approval at this time. Primary nurse aware. CM to cont to follow up.
[2019-10-14 16:27] VITALS: BP 120/61
[2019-10-14 20:00] VITALS: BP 101/63
[2019-10-14] MEDS: CLONAZEPAM 1 MG TABLET PO SCH (20:43)
[2019-10-14] MEDS ORDERED: Linaclotide (Linzess) 145 MCG PO SCH (21:00)
[2019-10-14 23:53] VITALS: BP 118/72
[2019-10-15 04:00] VITALS: BP 100/56
[2019-10-15] MEDS: INSULIN HUMULIN R 100 UNIT/ML 3ML SQ SCH ×3 (06:34→16:30)
[2019-10-15] MEDS: IPRATROPIUM/ALBUTEROL SULFATE 3 ML SOLUTION IH PRN (06:51)
[2019-10-15 08:09] VITALS: BP 141/76
[2019-10-15] MEDS: METFORMIN HCL 500 MG TABLET PO SCH (08:34)
[2019-10-15] MEDS: ACETAMINOPHEN EXTRA STRENGTH 500 MG TABLET PO SCH ×2 (08:37→16:15)
[2019-10-15] MEDS: Leflunomide 20 MG PO SCH (09:00)
[2019-10-15] MEDS: DAPAGLIFLOZIN PROPANEDIOL 10 MG PO SCH ×2 (09:00→18:00)
[2019-10-15] MEDS: Dapagliflozin Propanediol (Farxiga) 10 MG PO SCH (09:00)
[2019-10-15] MEDS: POLYETHYLENE GLYCOL 3350 17 GM POWD.PACK PO SCH (10:11)
[2019-10-15] MEDS: DILTIAZEM HCL 120 MG CAP.SR.24H PO SCH (10:12)
[2019-10-15] MEDS: PREGABALIN 25 MG CAP PO SCH (10:12)
[2019-10-15] MEDS: TRAZODONE HCL 50 MG TAB PO SCH (10:13)
[2019-10-15] MEDS: ASPIRIN 81MG TAB.CHEW PO SCH (10:13)
[2019-10-15] MEDS: CELECOXIB 200 MG CAP PO SCH (10:13)
[2019-10-15] MEDS: PANTOPRAZOLE SODIUM 40 MG TABLET.DR PO SCH (10:13)
[2019-10-15] MEDS: FUROSEMIDE 20 MG TABLET PO SCH (10:13)
[2019-10-15 12:00] VITALS: BP 110/70
[2019-10-15] MEDS: OXYCODONE HCL 5 MG TAB PO PRN ×2 (12:10→18:06)
--- NOTE | 2019-10-15 15:49 | NUR ---
d/c report called to Ksenia at [facility]; pending dr Lopez to round and and d/c patient at this time.
[2019-10-15 16:00] VITALS: BP 120/73
--- NOTE | 2019-10-15 18:00 | NUR ---
gail drsg changed to right knee and new gail dressing applied, good seal noted, pt jose. well; pt has a well approx. inc. line with absorbable sutures in place, no fresh drainage, mod. amount of edema and bruising noted; i have discussed with patient purpose and care of gail dressing and signs and symptoms of surgical infection to watch for; pt stated understanding of all instructions
[2019-10-15] MEDS ORDERED: ASPI-1005 PO (18:07)
[2019-10-15] MEDS ORDERED: HYDR-4457 PO (18:07)
--- NOTE | 2019-10-15 20:10 | NUR ---
pt stated understanding of all d/c instructions on after care for a knee replacement including --wound care, activity, new perscriptions, signs and symptoms of infection, and pain control. all d/c forms faxed to [facility].
[2019-10-16] MEDS ORDERED: BISACODYL 10 MG SUPP.RECT RC PRN (16:15)
[2019-10-20] MEDS ORDERED: ERGOCALCIFEROL (VITAMIN D2) 50,000 UNIT CAPSULE PO SCH (09:00)
== END 2019-10-15 20:11 | disposition home health service (06) | DRG 470 ==
LOC: DAHIP 10-13 09:18 → 4AH 10-13 16:21
PROVIDERS: ADMIT Orthopaedic Surgery; ATTEND Orthopaedic Surgery
PROC: 0SRC0JZ Replacement of Right Knee Joint with Synthetic Substitute, Open Approach (ICD-10-PCS; principal; 2019-10-13 14:24)
DX: M17.11 Unilateral primary osteoarthritis, right knee (principal); M06.9 Rheumatoid arthritis, unspecified; M79.7 Fibromyalgia; E11.9 Type 2 diabetes mellitus without complications; I10 Essential (primary) hypertension; E78.5 Hyperlipidemia, unspecified; Z96.651 Presence of right artificial knee joint; Z90.711 Acquired absence of uterus with remaining cervical stump; Z98.1 Arthrodesis status; Z88.8 Allergy status to other drugs, medicaments and biological substances; Z91.041 Radiographic dye allergy status
CPT/HCPCS: 36415; 80048; 81003; 82948; 85027; 87641; 94640; 94664; 96374; 96375; 97039; G0378; J0690; J1100; J1885; J2001; J2175; J2250; J2370; J2405; J2704; J2710; J2765; J2795; J3490; J7030

== ENCOUNTER → 2020-01-24 | Outpatient (CLI) | payer OTHER ==
[~2020-01-24] MED LIST changes: +ASPI-1005 PO; +CLON1TAB12 PO; -CYCL10 PO; +HYDR-4457 PO; +LEFL20TA18 PO; +METF500S7 PO; +MUPIROCIN; +TRAZ-185 PO
[2020-01-24 13:45] LABS: BASOPHILS % (AUTO) 0.7 % (0.0-5.0); EOSINOPHILS % (AUTO) 11.4 % (0.0-8.0); LYMPHOCYTES % (AUTO) 25.6 % (21.0-51.0); MEAN CORPUSCULAR HEMOGLOBIN 28.8 pg (27.0-33.0); MEAN CORPUSCULAR HGB CONC 32.3 g/dL (32.0-36.0); MEAN CORPUSCULAR VOLUME 89.3 fL (79-99); MONOCYTES % (AUTO) 5.9 % (3.0-13.0); NEUTROPHILS % (AUTO) 56.1 % (40.0-77.0); PLATELET COUNT (AUTO) 353 K/uL (130-400); RED BLOOD CELL COUNT(AUTO) 4.48 MIL/uL (4.00-5.50); RED CELL DISTRIBUTION WIDTH 15.6 % (11.0-15.5); WHITE BLOOD COUNT (AUTO) 10.6 K/uL (4.8-10.8)
[2020-01-24 14:01] LABS: ALBUMIN 3.5 g/dL (3.5-5.0); BILIRUBIN,TOTAL 0.2 mg/dL (0.2-1.0); CREATININE 0.8 mg/dL (0.5-1.5); POTASSIUM 3.6 mmol/L (3.5-5.1); TOTAL PROTEIN, SERUM 7.2 g/dL (6.0-8.3)
[2020-01-24 14:52] LABS: ERYTHROCYTE SEDIMENTATION RATE 15 MM/HR (0-30)
== END | disposition home or self-care (01) ==
LOC: LAB 13:07
PROVIDERS: ATTEND Internal Medicine
DX: Z51.81 Encounter for therapeutic drug level monitoring (principal); Z79.899 Other long term (current) drug therapy
CPT/HCPCS: 36415; 80053; 82784; 84165; 85025; 85651

== ENCOUNTER → 2020-02-02 | Outpatient (CLI) | payer OTHER ==
[~2020-02-02] MED LIST changes: -PANT40TA25 PO; +PANT40TA54 PO
[2020-02-03 09:14] LABS: BASOPHILS % (AUTO) 0.6 % (0.0-5.0); EOSINOPHILS % (AUTO) 0.4 % (0.0-8.0); HEMATOCRIT 39.4 % (36-48); LYMPHOCYTES % (AUTO) 38.2 % (21.0-51.0); MEAN CORPUSCULAR HGB CONC 32.7 g/dL (32.0-36.0); MEAN CORPUSCULAR VOLUME 88.5 fL (79-99); MONOCYTES % (AUTO) 6.7 % (3.0-13.0); NEUTROPHILS % (AUTO) 53.7 % (40.0-77.0); PLATELET COUNT (AUTO) 396 K/uL (130-400); RED BLOOD CELL COUNT(AUTO) 4.45 MIL/uL (4.00-5.50); RED CELL DISTRIBUTION WIDTH 15.7 % (11.0-15.5); WHITE BLOOD COUNT (AUTO) 14.1 K/uL (4.8-10.8)
[2020-02-03 09:21] LABS: APPEARANCE,URINE Clear (CLEAR); BILIRUBIN,URINE Negative (NEGATIVE); COLOR,URINE Yellow (YELLOW); GLUCOSE, URINE (UA) 500 mg/dL (NEGATIVE); KETONES,URINE Negative (NEGATIVE); LEUKOCYTE ESTERASE ,URINE Trace (NEGATIVE); NITRATE,URINE Negative (NEGATIVE); OCCULT BLOOD,URINE Negative (NEGATIVE); PROTEIN,URINE Negative (NEGATIVE); UROBILINOGEN,URINE 0.2 mg/dL (0.2-1.0)
[2020-02-03 09:39] LABS: ALBUMIN 3.9 g/dL (3.5-5.0); BILIRUBIN,TOTAL 0.4 mg/dL (0.2-1.0); CREATININE 0.8 mg/dL (0.5-1.5); CRP QUANTITATIVE 2.1 mg/L (0.00-9.0); MAGNESIUM 2.4 mg/dL (1.80-2.40); POTASSIUM 3.1 mmol/L (3.5-5.1); THYROID STIMULATING HORMONE 1.7 uIU/mL (0.36-3.74); TOTAL PROTEIN, SERUM 7.1 g/dL (6.0-8.3); URIC ACID 3.1 mg/dL (2.6-7.2)
[2020-02-03 09:46] LABS: BACTERIA,URINE None Seen /HPF (None Seen); RBC,URINE 0-1 /HPF (0-1); SQUAMOUS EPITHELIAL CELL,UR 0-2 /HPF (0-2); WBC,URINE 0-1 /HPF (0-1)
[2020-02-03 10:18] LABS: ERYTHROCYTE SEDIMENTATION RATE 7 MM/HR (0-30)
== END | disposition home or self-care (01) ==
LOC: LAB 02-01 12:03
PROVIDERS: ATTEND Family Medicine
DX: M47.817 Spondylosis without myelopathy or radiculopathy, lumbosacral region (principal); M25.551 Pain in right hip; R10.2 Pelvic and perineal pain
CPT/HCPCS: 36415; 72100; 73502; 80053; 80061; 81001; 82043; 82306; 82627; 83036; 83735; 84439; 84443; 84481; 84550; 85025; 85651; 86140; 86200; 86376; 86431; 87088

== ENCOUNTER → 2020-06-08 | Outpatient (CLI) | payer OTHER ==
[2020-06-08 10:08] LABS: EOSINOPHILS % (AUTO) 1.5 % (0.0-8.0); HEMATOCRIT 40.4 % (36-48); LYMPHOCYTES % (AUTO) 37.7 % (21.0-51.0); MEAN CORPUSCULAR HEMOGLOBIN 30.3 pg (27.0-33.0); MEAN CORPUSCULAR HGB CONC 32.9 g/dL (32.0-36.0); MONOCYTES % (AUTO) 7.9 % (3.0-13.0); NEUTROPHILS % (AUTO) 51.5 % (40.0-77.0); PLATELET COUNT (AUTO) 360 K/uL (130-400); RED BLOOD CELL COUNT(AUTO) 4.39 MIL/uL (4.00-5.50); RED CELL DISTRIBUTION WIDTH 14.8 % (11.0-15.5); WHITE BLOOD COUNT (AUTO) 11.2 K/uL (4.8-10.8)
[2020-06-08 10:12] LABS: APPEARANCE,URINE Clear (CLEAR); BILIRUBIN,URINE Negative (NEGATIVE); COLOR,URINE Yellow (YELLOW); GLUCOSE, URINE (UA) Negative (NEGATIVE); KETONES,URINE Negative (NEGATIVE); LEUKOCYTE ESTERASE ,URINE Trace (NEGATIVE); NITRATE,URINE Negative (NEGATIVE); OCCULT BLOOD,URINE Negative (NEGATIVE); PH,URINE 6.5 (5.0-8.0); PROTEIN,URINE Negative (NEGATIVE); UROBILINOGEN,URINE 0.2 mg/dL (0.2-1.0)
[2020-06-08 10:17] LABS: HEMOGLOBIN A1C 6.2 % (4.0-6.0)
[2020-06-08 10:18] LABS: BACTERIA,URINE Rare /HPF (None Seen); RBC,URINE 0-1 /HPF (0-1); SQUAMOUS EPITHELIAL CELL,UR Rare /HPF (0-2); WBC,URINE 0-1 /HPF (0-1)
[2020-06-08 10:34] LABS: ALBUMIN 3.8 g/dL (3.5-5.0); BILIRUBIN,TOTAL 0.4 mg/dL (0.2-1.0); CREATININE 0.6 mg/dL (0.5-1.5); CRP QUANTITATIVE 3.9 mg/L (0.00-9.0); MAGNESIUM 1.7 mg/dL (1.80-2.40); POTASSIUM 3.7 mmol/L (3.5-5.1); THYROID STIMULATING HORMONE 3.66 uIU/mL (0.36-3.74); TOTAL PROTEIN, SERUM 7.2 g/dL (6.0-8.3)
[2020-06-08 11:22] LABS: ERYTHROCYTE SEDIMENTATION RATE 15 MM/HR (0-30)
== END | disposition home or self-care (01) ==
LOC: RAH 09:23
PROVIDERS: ATTEND Family Medicine
DX: M16.11 Unilateral primary osteoarthritis, right hip (principal); Z00.00 Encounter for general adult medical examination without abnormal findings
CPT/HCPCS: 36415; 73502; 80053; 80061; 81001; 82043; 82306; 82627; 82728; 82746; 83036; 83735; 84439; 84443; 84481; 84540; 85025; 85651; 86003; 86005; 86140; 86376; 87088

== ENCOUNTER → 2020-08-15 | Outpatient (CLI) | payer OTHER | END | disposition home or self-care (01) | LOC: RAH 08-11 12:52 | PROVIDERS: ATTEND Family Medicine | DX: Z12.31 Encounter for screening mammogram for malignant neoplasm of breast (principal); N64.89 Other specified disorders of breast | CPT/HCPCS: 77067 ==

== ENCOUNTER → 2020-09-15 | Outpatient (CLI) | payer OTHER ==
[2020-09-15 15:32] LABS: BASOPHILS % (AUTO) 0.8 % (0.0-5.0); EOSINOPHILS % (AUTO) 8.2 % (0.0-8.0); HEMATOCRIT 39.8 % (36-48); LYMPHOCYTES % (AUTO) 29.3 % (21.0-51.0); MEAN CORPUSCULAR HEMOGLOBIN 29.6 pg (27.0-33.0); MEAN CORPUSCULAR HGB CONC 32.2 g/dL (32.0-36.0); MEAN CORPUSCULAR VOLUME 92.1 fL (79-99); NEUTROPHILS % (AUTO) 53.3 % (40.0-77.0); PLATELET COUNT (AUTO) 424 K/uL (130-400); RED BLOOD CELL COUNT(AUTO) 4.32 MIL/uL (4.00-5.50); RED CELL DISTRIBUTION WIDTH 14.7 % (11.0-15.5)
[2020-09-15 15:57] LABS: ALBUMIN 3.7 g/dL (3.5-5.0); BILIRUBIN,TOTAL 0.2 mg/dL (0.2-1.0); CREATININE 0.7 mg/dL (0.5-1.5); POTASSIUM 3.8 mmol/L (3.5-5.1); TOTAL PROTEIN, SERUM 7.4 g/dL (6.0-8.3)
[2020-09-15 17:01] LABS: APPEARANCE,URINE Clear (CLEAR); BILIRUBIN,URINE Negative (NEGATIVE); COLOR,URINE Yellow (YELLOW); GLUCOSE, URINE (UA) >=1000 mg/dL (NEGATIVE); KETONES,URINE Negative (NEGATIVE); LEUKOCYTE ESTERASE ,URINE Negative (NEGATIVE); NITRATE,URINE Negative (NEGATIVE); OCCULT BLOOD,URINE Negative (NEGATIVE); PROTEIN,URINE Negative (NEGATIVE); UROBILINOGEN,URINE 0.2 mg/dL (0.2-1.0)
[2020-09-15 17:24] LABS: BACTERIA,URINE Rare /HPF (None Seen); SQUAMOUS EPITHELIAL CELL,UR Rare /HPF (0-2); WBC,URINE 0-1 /HPF (0-1)
[2020-09-15 17:25] LABS: MUCUS,URINE Rare LPF (None Seen)
== END | disposition home or self-care (01) ==
LOC: RAH 13:37
PROVIDERS: ATTEND Internal Medicine
DX: M47.816 Spondylosis without myelopathy or radiculopathy, lumbar region (principal); M48.061 Spinal stenosis, lumbar region without neurogenic claudication; M25.78 Osteophyte, vertebrae; M16.0 Bilateral primary osteoarthritis of hip; M06.9 Rheumatoid arthritis, unspecified; Z90.49 Acquired absence of other specified parts of digestive tract; Z79.899 Other long term (current) drug therapy
CPT/HCPCS: 36415; 72100; 73522; 80053; 81001; 85025

== ENCOUNTER → 2020-10-06 | Outpatient (CLI) | payer OTHER ==
[2020-10-06 09:16] LABS: BASOPHILS % (AUTO) 1.1 % (0.0-5.0); EOSINOPHILS % (AUTO) 11.3 % (0.0-8.0); HEMATOCRIT 39.2 % (36-48); LYMPHOCYTES % (AUTO) 22.2 % (21.0-51.0); MEAN CORPUSCULAR HEMOGLOBIN 29.4 pg (27.0-33.0); MEAN CORPUSCULAR HGB CONC 32.1 g/dL (32.0-36.0); MEAN CORPUSCULAR VOLUME 91.6 fL (79-99); NEUTROPHILS % (AUTO) 56.1 % (40.0-77.0); PLATELET COUNT (AUTO) 323 K/uL (130-400); RED BLOOD CELL COUNT(AUTO) 4.28 MIL/uL (4.00-5.50); RED CELL DISTRIBUTION WIDTH 14.4 % (11.0-15.5); WHITE BLOOD COUNT (AUTO) 7.4 K/uL (4.8-10.8)
[2020-10-06 09:33] LABS: HEMOGLOBIN A1C 5.8 % (4.0-6.0)
[2020-10-06 09:47] LABS: APPEARANCE,URINE Clear (CLEAR); BILIRUBIN,URINE Negative (NEGATIVE); COLOR,URINE Yellow (YELLOW); GLUCOSE, URINE (UA) >=1000 mg/dL (NEGATIVE); KETONES,URINE Negative (NEGATIVE); LEUKOCYTE ESTERASE ,URINE Negative (NEGATIVE); NITRATE,URINE Negative (NEGATIVE); OCCULT BLOOD,URINE Negative (NEGATIVE); PROTEIN,URINE Negative (NEGATIVE); UROBILINOGEN,URINE 0.2 mg/dL (0.2-1.0)
[2020-10-06 10:09] LABS: BACTERIA,URINE Rare /HPF (None Seen); RBC,URINE 0-1 /HPF (0-1); SQUAMOUS EPITHELIAL CELL,UR Rare /HPF (0-2); WBC,URINE 0-1 /HPF (0-1)
[2020-10-06 11:20] LABS: ALBUMIN 3.5 g/dL (3.5-5.0); BILIRUBIN,TOTAL 0.5 mg/dL (0.2-1.0); CREATININE 0.6 mg/dL (0.5-1.5); POTASSIUM 3.6 mmol/L (3.5-5.1); THYROID STIMULATING HORMONE 1.77 uIU/mL (0.36-3.74)
== END | disposition home or self-care (01) ==
LOC: LAB 08:05
PROVIDERS: ATTEND Family Medicine
DX: T78.1XXA Other adverse food reactions, not elsewhere classified, initial encounter (principal); E87.6 Hypokalemia; E83.51 Hypocalcemia; I10 Essential (primary) hypertension; E11.9 Type 2 diabetes mellitus without complications; E78.5 Hyperlipidemia, unspecified; E03.9 Hypothyroidism, unspecified; M06.9 Rheumatoid arthritis, unspecified; R53.83 Other fatigue; R79.82 Elevated C-reactive protein (CRP); X58.XXXA Exposure to other specified factors, initial encounter
CPT/HCPCS: 36415; 80053; 80061; 81001; 82043; 82306; 83036; 84439; 84443; 84481; 85025; 86376

== ENCOUNTER → 2021-01-02 | Outpatient (CLI) | payer OTHER ==
[2021-01-02 10:46] LABS: BASOPHILS % (AUTO) 0.6 % (0.0-5.0); EOSINOPHILS % (AUTO) 0.3 % (0.0-8.0); HEMATOCRIT 37.3 % (36-48); MEAN CORPUSCULAR HEMOGLOBIN 28.4 pg (27.0-33.0); MEAN CORPUSCULAR HGB CONC 33.5 g/dL (32.0-36.0); MEAN CORPUSCULAR VOLUME 84.8 fL (79-99); NEUTROPHILS % (AUTO) 71.3 % (40.0-77.0); PLATELET COUNT (AUTO) 414 K/uL (130-400); RED CELL DISTRIBUTION WIDTH 16.8 % (11.0-15.5); WHITE BLOOD COUNT (AUTO) 14.6 K/uL (4.8-10.8)
[2021-01-02 10:55] LABS: HEMOGLOBIN A1C 6.3 % (4.0-6.0)
[2021-01-02 11:30] LABS: ALANINE AMINOTRANSFERASE 39 U/L (12-78); ALBUMIN 3.9 g/dL (3.5-5.0); ASPARTATE AMINOTRANSFERASE 26 U/L (10-37); BILIRUBIN,TOTAL 0.4 mg/dL (0.2-1.0); CARBON DIOXIDE 27 mmol/L (21-32); CHLORIDE 105 mmol/L (101-111); CHOLESTEROL 221 mg/dL (<200); CREATININE 0.7 mg/dL (0.5-1.5); GLOMERULAR FILTR. RATE CALC 90 mL/min (>60); GLUCOSE,RANDOM 129 mg/dL (70-105); HDL CHOLESTEROL 62 mg/dL (35-85); LDL DIRECT 124 mg/dL (0-99); POTASSIUM 3.7 mmol/L (3.5-5.1); SODIUM SERUM 140 mmol/L (136-145); THYROID STIMULATING HORMONE 0.75 uIU/mL (0.36-3.74); TOTAL PROTEIN, SERUM 7.3 g/dL (6.0-8.3); TRIGLYCERIDES 172 mg/dL (30-200); UREA NITROGEN, BLOOD 17 mg/dL (7-18); URIC ACID < 1.0 mg/dL (2.6-7.2)
[2021-01-02 11:45] LABS: ERYTHROCYTE SEDIMENTATION RATE 13 MM/HR (0-30)
== END | disposition home or self-care (01) ==
LOC: RAH 13:36
PROVIDERS: ATTEND Family Medicine
DX: M47.816 Spondylosis without myelopathy or radiculopathy, lumbar region (principal); M51.36 Other intervertebral disc degeneration, lumbar region; M54.9 Dorsalgia, unspecified; M06.9 Rheumatoid arthritis, unspecified; I10 Essential (primary) hypertension; E78.5 Hyperlipidemia, unspecified; E11.9 Type 2 diabetes mellitus without complications; M43.26 Fusion of spine, lumbar region
CPT/HCPCS: 36415; 72100; 80053; 80061; 82043; 82306; 82607; 83036; 83735; 84439; 84443; 84481; 84550; 85025; 85651; 86140; 86376; 87077; 87088; 87186

== ENCOUNTER → 2021-01-10 | Outpatient (CLI) | payer OTHER | END | disposition home or self-care (01) | LOC: RAH 01-09 08:37 | PROVIDERS: ATTEND Family Medicine | DX: K21.9 Gastro-esophageal reflux disease without esophagitis (principal) | CPT/HCPCS: 74240 ==

== ENCOUNTER → 2021-02-19 | Outpatient (CLI) | payer OTHER | END | disposition home or self-care (01) | LOC: LAB 08:56 | PROVIDERS: ATTEND Family Medicine | DX: K21.9 Gastro-esophageal reflux disease without esophagitis (principal); R10.9 Unspecified abdominal pain; Z91.018 Allergy to other foods | CPT/HCPCS: 36415; 83013 ==

== ENCOUNTER 2021-02-23 22:11 | Observation (INO) | payer OTHER ==
[~2021-02-23] VITALS: Ht 157.5 cm; Wt 100.9 kg
[2021-02-23] MEDS ORDERED: NITROGLYCERIN 1GM/1 INCH PACKET TD ONE (22:40)
[2021-02-23] MEDS ORDERED: SODIUM CHLORIDE 0.9% 500ML 500 ML IV ONE (22:41)
[2021-02-23] MEDS ORDERED: ASPIRIN 325 MG TABLET ONE (22:42)
[2021-02-23 22:49] LABS: BASOPHILS % (AUTO) 0.8 % (0.0-5.0); EOSINOPHILS % (AUTO) 9.6 % (0.0-8.0); HEMATOCRIT 38.4 % (36-48); LYMPHOCYTES % (AUTO) 21.1 % (21.0-51.0); MEAN CORPUSCULAR HEMOGLOBIN 28.3 pg (27.0-33.0); MEAN CORPUSCULAR HGB CONC 32.3 g/dL (32.0-36.0); MEAN CORPUSCULAR VOLUME 87.7 fL (79-99); MONOCYTES % (AUTO) 5.6 % (3.0-13.0); NEUTROPHILS % (AUTO) 62.4 % (40.0-77.0); PLATELET COUNT (AUTO) 314 K/uL (130-400); RED BLOOD CELL COUNT(AUTO) 4.38 MIL/uL (4.00-5.50); RED CELL DISTRIBUTION WIDTH 16.8 % (11.0-15.5); WHITE BLOOD COUNT (AUTO) 14.5 K/uL (4.8-10.8)
[2021-02-23 23:00] LABS: CREATININE 0.7 mg/dL (0.5-1.5); POTASSIUM 4.4 mmol/L (3.5-5.1)
[2021-02-23 23:04] LABS: ALBUMIN 3.6 g/dL (3.5-5.0); BILIRUBIN,TOTAL 0.3 mg/dL (0.2-1.0); CRP QUANTITATIVE 19.6 mg/L (0.00-9.0); MAGNESIUM 1.8 mg/dL (1.80-2.40)
[2021-02-23 23:06] LABS: INR 0.91 (0.85-1.15)
[2021-02-23 23:08] LABS: PARTIAL THROMBOPLASTIN TIME 23.1 SEC (26.3-35.5)
[2021-02-24] MEDS ORDERED: MORPHINE SULFATE 2 MG/ML 1ML SYG IV PRN (00:45)
[2021-02-24] MEDS ORDERED: GUAIFENESIN-DM 200/20 MG 10 ML PO PRN (00:45)
[2021-02-24] MEDS ORDERED: LACTULOSE 20 GM/30 ML UDCUP PO PRN (00:45)
[2021-02-24] MEDS ORDERED: ACETAMINOPHEN 325 MG TAB PO PRN (00:45)
[2021-02-24] MEDS ORDERED: ONDANSETRON HCL 4 MG/2 ML VIAL IV PRN (00:45)
[2021-02-24] MEDS ORDERED: NITROGLYCERIN 0.4 MG SL TAB SL PRN (00:45)
[2021-02-24] MEDS ORDERED: ZOLPIDEM TARTRATE 5 MG TAB PO PRN (00:45)
[2021-02-24] MEDS ORDERED: ACETAMINOPHEN 325 MG TAB ONE ×2 (03:07→07:32)
[2021-02-24] MEDS ORDERED: ZOLPIDEM TARTRATE 5 MG TAB ONE (03:07)
[2021-02-24 05:28] LABS: BASOPHILS % (AUTO) 0.7 % (0.0-5.0); EOSINOPHILS % (AUTO) 11.4 % (0.0-8.0); HEMATOCRIT 35.5 % (36-48); LYMPHOCYTES % (AUTO) 21.9 % (21.0-51.0); MEAN CORPUSCULAR HEMOGLOBIN 28.7 pg (27.0-33.0); MEAN CORPUSCULAR HGB CONC 31.8 g/dL (32.0-36.0); MEAN CORPUSCULAR VOLUME 90.1 fL (79-99); NEUTROPHILS % (AUTO) 58.2 % (40.0-77.0); PLATELET COUNT (AUTO) 254 K/uL (130-400); RED BLOOD CELL COUNT(AUTO) 3.94 MIL/uL (4.00-5.50); WHITE BLOOD COUNT (AUTO) 10.6 K/uL (4.8-10.8)
[2021-02-24 05:55] LABS: ALBUMIN 3.3 g/dL (3.5-5.0); BILIRUBIN,TOTAL 0.3 mg/dL (0.2-1.0); CREATININE 0.6 mg/dL (0.5-1.5); THYROID STIMULATING HORMONE 2.55 uIU/mL (0.36-3.74); TOTAL PROTEIN, SERUM 6.3 g/dL (6.0-8.3)
[2021-02-24 05:58] LABS: POTASSIUM 2.7 mmol/L (3.5-5.1)
[2021-02-24] MEDS ORDERED: POTASSIUM CHLORIDE 20MEQ/100ML 100 ML IV PRN (06:15)
[2021-02-24] MEDS ORDERED: POTASSIUM CHLORIDE 10% ELIXIR 20 MEQ/15 ML UDCUP PO PRN (06:15)
[2021-02-24] MEDS ORDERED: POTASSIUM CHLORIDE 20MEQ/100ML 100 ML IV ONE (06:19)
[2021-02-24] MEDS ORDERED: LIDOCAINE HCL-MPF 1% 2ML VIAL ONE (06:19)
[2021-02-24] MEDS ORDERED: PHARMACY COMMUNICATION MISC SCH (07:30)
[2021-02-24] MEDS ORDERED: ASPIRIN 81MG TAB.CHEW ONE (08:51)
[2021-02-24] MEDS ORDERED: ENOXAPARIN SODIUM 40 MG/0.4 ML SYRINGE SQ ONE (08:51)
[2021-02-24] MEDS ORDERED: FAMOTIDINE/PF 20 MG/2 ML VIAL IV ONE (08:51)
[2021-02-24] MEDS ORDERED: FAMOTIDINE/PF 20 MG/2 ML VIAL IV SCH (09:00)
[2021-02-24] MEDS ORDERED: POTASSIUM CHLORIDE 20 MEQ ERTAB PO ONE (11:06)
[2021-02-24] MEDS ORDERED: MAGNESIUM 2GM PREMIX 50ML 50 ML IV PRN (11:15)
[2021-02-24] MEDS ORDERED: IPRATROPIUM/ALBUTEROL SULFATE 3 ML SOLUTION IH ONE (11:18)
[2021-02-24] MEDS: IPRATROPIUM/ALBUTEROL SULFATE 3 ML SOLUTION IH SCH ×4 (11:20→23:19)
[2021-02-24] MEDS ORDERED: PANTOPRAZOLE SODIUM 40 MG TABLET.DR ONE (13:44)
[2021-02-24] MEDS ORDERED: FUROSEMIDE 20 MG TABLET ONE (14:12)
[2021-02-24] MEDS ORDERED: GABAPENTIN 300 MG CAPSULE ONE (14:13)
[2021-02-24] MEDS ORDERED: DILTIAZEM HCL 120 MG CAP.SR.24H PO ONE (14:13)
[2021-02-24 18:59] VITALS: BP 117/66
[2021-02-24] MEDS: INSULIN HUMULIN R 100 UNIT/ML 3ML SQ SCH (21:00)
[2021-02-24] MEDS: ATORVASTATIN CALCIUM 40 MG TABLET PO SCH (21:36)
[2021-02-24] MEDS: POTASSIUM CHLORIDE 20 MEQ ERTAB PO PRN (21:39)
[2021-02-24] MEDS ORDERED: GABA600T10 PO (22:23)
[2021-02-24] MEDS ORDERED: ROSU5TAB12 PO (22:23)
[2021-02-24] MEDS ORDERED: NAPR-1023 PO (22:23)
[2021-02-24] MEDS ORDERED: EXEN10PE3 SQ (22:23)
[2021-02-24] MEDS ORDERED: DAPA10TA PO (22:23)
[2021-02-24] MEDS ORDERED: LIOT5TAB11 PO (22:23)
[2021-02-24] MEDS ORDERED: CYCL10TA7 PO (22:23)
[2021-02-24] MEDS ORDERED: HYDR25TA PO (22:23)
[2021-02-24] MEDS ORDERED: VIT D2 PO (22:23)
[2021-02-25 00:16] VITALS: BP 116/72
[2021-02-25 04:22] VITALS: BP 115/69
[2021-02-25 04:41] LABS: HEMATOCRIT 36.7 % (36-48); MEAN CORPUSCULAR HEMOGLOBIN 27.6 pg (27.0-33.0); MEAN CORPUSCULAR HGB CONC 31.3 g/dL (32.0-36.0); MEAN CORPUSCULAR VOLUME 88.2 fL (79-99); RED BLOOD CELL COUNT(AUTO) 4.16 MIL/uL (4.00-5.50)
[2021-02-25 05:00] LABS: CREATININE 0.6 mg/dL (0.5-1.5)
[2021-02-25 05:02] LABS: POTASSIUM 2.9 mmol/L (3.5-5.1)
[2021-02-25] MEDS: POTASSIUM CHLORIDE 20 MEQ ERTAB PO PRN ×6 (05:14→19:38)
[2021-02-25] MEDS: INSULIN HUMULIN R 100 UNIT/ML 3ML SQ SCH ×4 (06:01→21:00)
[2021-02-25] MEDS: IPRATROPIUM/ALBUTEROL SULFATE 3 ML SOLUTION IH SCH ×2 (06:08→11:03)
[2021-02-25 07:00] VITALS: BP 121/65
[2021-02-25] MEDS: LIOTHYRONINE 5 MCG PO SCH (09:00)
[2021-02-25] MEDS: PANTOPRAZOLE SODIUM 40 MG TABLET.DR PO SCH ×2 (09:00→09:10)
[2021-02-25] MEDS: ASPIRIN 81MG TAB.CHEW PO SCH ×2 (09:00→09:11)
[2021-02-25] MEDS: ENOXAPARIN SODIUM 40 MG/0.4 ML SYRINGE SQ SCH ×2 (09:00→09:10)
[2021-02-25] MEDS ORDERED: LIDOCAINE HCL-MPF 1% 2ML VIAL IV PRN (09:15)
[2021-02-25] MEDS ORDERED: POTASSIUM CHLORIDE 10MEQ/100ML 100 ML IV PRN (09:15)
[2021-02-25 11:00] VITALS: BP 128/66
[2021-02-25] MEDS ORDERED: IPRATROPIUM/ALBUTEROL SULFATE 3 ML SOLUTION IH PRN (15:30)
[2021-02-25 16:00] VITALS: BP 104/55
[2021-02-25] MEDS: ACETAMINOPHEN 325 MG TAB PO PRN (19:38)
[2021-02-25 20:00] VITALS: BP 120/72
[2021-02-25] MEDS: ATORVASTATIN CALCIUM 40 MG TABLET PO SCH (21:24)
[2021-02-26] VITALS: BP 122/65
[2021-02-26 03:58] VITALS: BP 117/74
[2021-02-26 04:51] LABS: HEMOGLOBIN A1C 6.2 % (4.0-6.0)
[2021-02-26 04:59] LABS: CREATININE 0.5 mg/dL (0.5-1.5); POTASSIUM 4.3 mmol/L (3.5-5.1)
[2021-02-26] MEDS: INSULIN HUMULIN R 100 UNIT/ML 3ML SQ SCH ×4 (06:10→20:43)
[2021-02-26] MEDS: LIOTHYRONINE 5 MCG PO SCH (08:43)
[2021-02-26] MEDS: PANTOPRAZOLE SODIUM 40 MG TABLET.DR PO SCH (08:44)
[2021-02-26] MEDS: ASPIRIN 81MG TAB.CHEW PO SCH (08:44)
[2021-02-26] MEDS: ENOXAPARIN SODIUM 40 MG/0.4 ML SYRINGE SQ SCH (08:45)
[2021-02-26 09:21] VITALS: BP 126/75
[2021-02-26] MEDS ORDERED: REGADENOSON 0.4 MG/5 ML PF SYG IVP SCH (10:45)
[2021-02-26 16:27] VITALS: BP 131/78
[2021-02-26 20:38] VITALS: BP 118/52
[2021-02-26] MEDS: ATORVASTATIN CALCIUM 40 MG TABLET PO SCH (20:43)
[2021-02-26] MEDS: BENZONATATE 100 MG CAPSULE PO SCH (20:43)
[2021-02-26] MEDS ORDERED: MONTELUKAST SODIUM 10 MG TAB PO SCH (21:00)
[2021-02-26] MEDS: ACETAMINOPHEN 325 MG TAB PO PRN (23:29)
[2021-02-27] VITALS: BP 106/52
[2021-02-27 03:53] VITALS: BP 155/71
[2021-02-27] MEDS: BENZONATATE 100 MG CAPSULE PO SCH ×2 (03:57→09:46)
[2021-02-27 04:08] LABS: CREATININE 0.6 mg/dL (0.5-1.5); POTASSIUM 3.9 mmol/L (3.5-5.1)
[2021-02-27] MEDS: INSULIN HUMULIN R 100 UNIT/ML 3ML SQ SCH ×2 (06:14→11:10)
[2021-02-27 08:00] VITALS: BP 115/61
[2021-02-27] MEDS: LIOTHYRONINE 5 MCG PO SCH (09:00)
[2021-02-27] MEDS: PANTOPRAZOLE SODIUM 40 MG TABLET.DR PO SCH (09:46)
[2021-02-27] MEDS: ASPIRIN 81MG TAB.CHEW PO SCH (09:46)
[2021-02-27] MEDS: ENOXAPARIN SODIUM 40 MG/0.4 ML SYRINGE SQ SCH (09:47)
[2021-02-27 12:00] VITALS: BP 126/76
== END 2021-02-27 15:15 | disposition home or self-care (01) ==
LOC: EDH 22:11 → EDHIP 02-24 00:29 → 4BH 02-24 18:21
PROVIDERS: ADMIT Internal Medicine; ATTEND Internal Medicine
DX: R07.89 Other chest pain (principal); I20.0 Unstable angina; R20.2 Paresthesia of skin; R05 Cough; R09.89 Other specified symptoms and signs involving the circulatory and respiratory systems; I11.9 Hypertensive heart disease without heart failure; E11.9 Type 2 diabetes mellitus without complications; E03.9 Hypothyroidism, unspecified; M06.9 Rheumatoid arthritis, unspecified; E66.9 Obesity, unspecified; K21.9 Gastro-esophageal reflux disease without esophagitis; K76.0 Fatty (change of) liver, not elsewhere classified; Z90.49 Acquired absence of other specified parts of digestive tract; Z79.899 Other long term (current) drug therapy; Z88.8 Allergy status to other drugs, medicaments and biological substances; Z91.041 Radiographic dye allergy status; Z68.41 Body mass index [BMI] 40.0-44.9, adult
CPT/HCPCS: 36415 ×5; 71045; 71250; 78452; 80048 ×3; 80053 ×2; 80061; 82550; 82948 ×11; 83036; 83690; 83735 ×2; 83880; 84132 ×2; 84145; 84443; 84484 ×3; 85025 ×2; 85027; 85378; 85610; 85730; 86140; 93005 ×3; 93017; 93306; 93356; 94640 ×5; 94664; 96365; 96366; 96372 ×3; 99285; A9500 ×2; G0378 ×82; J1650 ×4; J2785; J3475; J3480; J3490 ×2; J7040; 96374

== ENCOUNTER → 2021-04-19 | Outpatient (CLI) | payer OTHER ==
[~2021-04-19] MED LIST changes: -ASPI-1005 PO; -CLON1TAB12 PO; +CYCL10TA7 PO; +EXEN10PE3 SQ; +GABA600T10 PO; -HYDR-4457 PO; +HYDR25TA PO; -LEFL20TA18 PO; -LINA145C PO; +LIOT5TAB11 PO; -MELO-108 PO; -METF500S7 PO; -MUPIROCIN; +NAPR-1023 PO; +ROSU5TAB12 PO; +VIT D2 PO
[2021-04-19 12:28] LABS: BASOPHILS % (AUTO) 0.6 % (0.0-5.0); EOSINOPHILS % (AUTO) 8.7 % (0.0-8.0); HEMATOCRIT 39.2 % (36-48); MEAN CORPUSCULAR HEMOGLOBIN 28.4 pg (27.0-33.0); MEAN CORPUSCULAR HGB CONC 31.4 g/dL (32.0-36.0); MEAN CORPUSCULAR VOLUME 90.5 fL (79-99); MONOCYTES % (AUTO) 7.8 % (3.0-13.0); NEUTROPHILS % (AUTO) 63.5 % (40.0-77.0); PLATELET COUNT (AUTO) 296 K/uL (130-400); RED BLOOD CELL COUNT(AUTO) 4.33 MIL/uL (4.00-5.50); RED CELL DISTRIBUTION WIDTH 16.1 % (11.0-15.5); WHITE BLOOD COUNT (AUTO) 9.5 K/uL (4.8-10.8)
[2021-04-19 13:03] LABS: ALBUMIN 3.5 g/dL (3.5-5.0); BILIRUBIN,TOTAL 0.4 mg/dL (0.2-1.0); CREATININE 0.5 mg/dL (0.5-1.5); CRP QUANTITATIVE 13.6 mg/L (0.00-9.0); POTASSIUM 3.8 mmol/L (3.5-5.1); TOTAL PROTEIN, SERUM 6.9 g/dL (6.0-8.3)
[2021-04-19 13:37] LABS: ERYTHROCYTE SEDIMENTATION RATE 30 MM/HR (0-30)
[2021-04-20 08:15] LABS: HEPATITIS Bs ANTIGEN SCREEN P Negative (Negative)
== END | disposition home or self-care (01) ==
LOC: LAB 10:00
PROVIDERS: ATTEND Internal Medicine
DX: M19.042 Primary osteoarthritis, left hand (principal); M19.041 Primary osteoarthritis, right hand; M77.32 Calcaneal spur, left foot; M77.31 Calcaneal spur, right foot; M19.072 Primary osteoarthritis, left ankle and foot; M19.071 Primary osteoarthritis, right ankle and foot; M79.89 Other specified soft tissue disorders; M06.4 Inflammatory polyarthropathy
CPT/HCPCS: 36415; 73620; 80053; 85025; 85651; 86140; 86200; 86431; 86704; 87340

== ENCOUNTER → 2021-06-29 | Outpatient (CLI) | payer OTHER ==
[~2021-06-29] MED LIST changes: +AEC81 PO; +LEFL20TA18 PO; +METF-444 PO; +OXYC-38 PO
[2021-06-29 14:09] LABS: BASOPHILS % (AUTO) 0.7 % (0.0-5.0); EOSINOPHILS % (AUTO) 3.1 % (0.0-8.0); HEMATOCRIT 38.5 % (36-48); LYMPHOCYTES % (AUTO) 18.2 % (21.0-51.0); MEAN CORPUSCULAR HEMOGLOBIN 28.4 pg (27.0-33.0); MEAN CORPUSCULAR HGB CONC 31.7 g/dL (32.0-36.0); MEAN CORPUSCULAR VOLUME 89.7 fL (79-99); MONOCYTES % (AUTO) 6.5 % (3.0-13.0); NEUTROPHILS % (AUTO) 71.1 % (40.0-77.0); PLATELET COUNT (AUTO) 386 K/uL (130-400); RED BLOOD CELL COUNT(AUTO) 4.29 MIL/uL (4.00-5.50); RED CELL DISTRIBUTION WIDTH 18.8 % (11.0-15.5); WHITE BLOOD COUNT (AUTO) 13.6 K/uL (4.8-10.8)
[2021-06-29 14:38] LABS: HEMOGLOBIN A1C 6.4 % (4.0-6.0)
[2021-06-29 14:48] LABS: ALBUMIN 3.6 g/dL (3.5-5.0); BILIRUBIN,TOTAL 0.3 mg/dL (0.2-1.0); CREATININE 0.8 mg/dL (0.5-1.5); MAGNESIUM 1.8 mg/dL (1.80-2.40); POTASSIUM 3.4 mmol/L (3.5-5.1); THYROID STIMULATING HORMONE 1.22 uIU/mL (0.36-3.74); TOTAL PROTEIN, SERUM 7.1 g/dL (6.0-8.3); URIC ACID 3.3 mg/dL (2.6-7.2)
[2021-06-29 15:28] LABS: ERYTHROCYTE SEDIMENTATION RATE 16 MM/HR (0-30)
== END | disposition home or self-care (01) ==
LOC: LAB 12:06
PROVIDERS: ATTEND Family Medicine
DX: E11.9 Type 2 diabetes mellitus without complications (principal); I10 Essential (primary) hypertension; R52 Pain, unspecified; M06.9 Rheumatoid arthritis, unspecified; E78.5 Hyperlipidemia, unspecified
CPT/HCPCS: 36415; 80053; 80061; 82306; 82607; 83036; 83735; 84439; 84443; 84481; 84550; 85025; 85651; 86376

== ENCOUNTER 2021-07-24 13:00 | Inpatient (IN) | payer OTHER ==
[~2021-07-24] VITALS: Ht 172.7 cm; Wt 77.1 kg
[2021-07-24 09:41] LABS: BASOPHILS % (AUTO) 1.1 % (0.0-5.0); EOSINOPHILS % (AUTO) 9.4 % (0.0-8.0); HEMATOCRIT 38.8 % (36-48); LYMPHOCYTES % (AUTO) 26.6 % (21.0-51.0); MEAN CORPUSCULAR HEMOGLOBIN 28.6 pg (27.0-33.0); MEAN CORPUSCULAR HGB CONC 31.4 g/dL (32.0-36.0); MEAN CORPUSCULAR VOLUME 91.1 fL (79-99); MONOCYTES % (AUTO) 7.4 % (3.0-13.0); NEUTROPHILS % (AUTO) 54.9 % (40.0-77.0); PLATELET COUNT (AUTO) 325 K/uL (130-400); RED BLOOD CELL COUNT(AUTO) 4.26 MIL/uL (4.00-5.50); RED CELL DISTRIBUTION WIDTH 17.5 % (11.0-15.5)
[~2021-07-24 13:00] MED LIST changes: -AEC81 PO; -CYCL10TA7 PO; -ERGO500014 PO; -EXEN10PE3 SQ; -HYDR25TA PO; -LEFL20TA18 PO; -LIOT5TAB11 PO; -METF-444 PO; -OXYC-38 PO; -ROSU5TAB12 PO; -TRAZ-185 PO; -VIT D2 PO
[2021-07-24 16:50] VITALS: BP 133/70
[2021-07-24] MEDS ORDERED: CYCL10TA7 PO (17:23)
[2021-07-24] MEDS ORDERED: METF-444 PO ×2 (17:23→17:25)
[2021-07-24] MEDS ORDERED: LEFL20TA18 PO (17:23)
[2021-07-24] MEDS ORDERED: TRAZ-185 PO (17:23)
[2021-07-24] MEDS ORDERED: ROSU5TAB12 PO (17:23)
[2021-07-24] MEDS ORDERED: LIOT5TAB11 PO (17:25)
[2021-07-25] VITALS (22 sets, daily range): BP systolic 105–150; BP diastolic 65–93
[2021-07-25] MEDS ORDERED: 0.9%NACL 1000ML 1,000 ML IV ONE (08:29)
[2021-07-25] MEDS: CEFAZOLIN SODIUM 1 GM VIAL IVP ONE ×2 (09:46→12:25)
[2021-07-25] MEDS ORDERED: SUCCINYLCHOLINE CHLORIDE 20 MG/ML 10 ML VIAL ONE (12:11)
[2021-07-25] MEDS ORDERED: LIDOCAINE HCL-MPF 1% 5ML AMP IJ ONE (12:11)
[2021-07-25] MEDS ORDERED: PROPOFOL 10 MG/ML 20ML VIAL IV ONE (12:12)
[2021-07-25] MEDS ORDERED: ROCURONIUM 10MG/1ML SYR 10 MG/ML ML ONE (12:12)
[2021-07-25] MEDS ORDERED: FENTANYL CITRATE PF 50 MCG/1 ML 2ML VIAL ONE ×2 (12:12→13:05)
[2021-07-25] MEDS ORDERED: MIDAZOLAM HCL 1 MG/ML 2ML VIAL ONE ×2 (12:12→14:53)
[2021-07-25] MEDS ORDERED: DEXAMETHASONE SOD PHOSPHATE 10MG/ML 1ML VIAL ONE (12:26)
[2021-07-25] MEDS ORDERED: CEFAZOLIN SODIUM 1 GM VIAL ONE (12:30)
[2021-07-25] MEDS ORDERED: TRANEXAMIC ACID 1000MG/10ML ONE ×2 (12:30→14:37)
[2021-07-25] MEDS ORDERED: ONDANSETRON 4MG INJ IVP PRN (14:30)
[2021-07-25] MEDS ORDERED: POTASSIUM CHLORIDE 20MEQ/100ML 100 ML IV PRN (14:30)
[2021-07-25] MEDS: ACETAMINOPHEN 500 MG TABLET PO SCH ×2 (14:30→22:43)
[2021-07-25] MEDS ORDERED: KCL 20 MEQ ERTAB PO PRN (14:30)
[2021-07-25] MEDS ORDERED: TRAMADOL HCL 50 MG TABLET PO PRN (14:30)
[2021-07-25] MEDS ORDERED: DiphenhydrAMINE HCL 50 MG/ML VIAL IVP PRN (14:30)
[2021-07-25] MEDS: 0.9%NACL 1000ML 1,000 ML IV SCH ×2 (14:30→19:20)
[2021-07-25] MEDS ORDERED: OXYCODONE HCL 5 MG TAB PO PRN (14:30)
[2021-07-25] MEDS ORDERED: LIDOCAINE HCL-MPF 1% 2ML VIAL IV PRN (14:30)
[2021-07-25] MEDS ORDERED: FERROUS FUMARATE 324 MG TABLET PO PRN (14:30)
[2021-07-25] MEDS ORDERED: POTASSIUM CHLORIDE 10% ELIXIR 20 MEQ/15 ML UDCUP PO PRN (14:30)
[2021-07-25] MEDS ORDERED: GLYCOPYRROLATE 1 MG/5 ML SYRINGE ONE (14:31)
[2021-07-25] MEDS ORDERED: KETOROLAC 30MG VIAL (30MG/ML) ONE (14:34)
[2021-07-25] MEDS ORDERED: ALBUTEROL 0.083% 2.5 MG/3 ML INH IH ONE (14:48)
[2021-07-25] MEDS ORDERED: MEPERIDINE-PF 25 MG/ML SYG ONE ×2 (15:10→15:21)
[2021-07-25] MEDS: INSULIN HUMULIN R 100 UNIT/ML 3ML SQ SCH ×2 (16:10→21:00)
[2021-07-25] MEDS ORDERED: NAPROXEN 500 MG TABLET PO PRN (16:30)
[2021-07-25] MEDS: KETOROLAC 15MG/ML VIAL (15MG/ML) IV PRN ×2 (16:37→23:05)
[2021-07-25] MEDS: OXYCODONE HCL 5 MG TAB PO PRN (17:16)
[2021-07-25] MEDS ORDERED: HYDROMORPHONE PCA 10 MG/50 ML 50 ML IV PRN (18:00)
[2021-07-25] MEDS ORDERED: HYDROMORPHONE 0.5 MG SYG (0.5MG/0.5ML) ONE (19:23)
[2021-07-25] MEDS: ASPIRIN 81 MG EC TAB PO SCH (19:35)
[2021-07-25] MEDS: TRAZODONE HCL 50 MG TAB PO SCH (19:35)
[2021-07-25] MEDS: CEFAZOLIN SODIUM 1 GM VIAL IVP SCH (19:35)
[2021-07-25] MEDS: ATORVASTATIN 10 MG TABLET PO SCH (19:35)
[2021-07-25] MEDS: CELECOXIB 200 MG CAP PO SCH (19:35)
[2021-07-25] MEDS ORDERED: GABAPENTIN 300 MG CAPSULE ONE (19:38)
[2021-07-25] MEDS: GABAPENTIN 300 MG CAPSULE PO SCH (19:39)
[2021-07-25] MEDS: METFORMIN HCL 500 MG TABLET PO SCH (21:00)
[2021-07-26] VITALS: BP 121/71
[2021-07-26] MEDS: KETOROLAC 15MG/ML VIAL (15MG/ML) IV PRN ×3 (03:32→19:44)
[2021-07-26] MEDS: CEFAZOLIN SODIUM 1 GM VIAL IVP SCH (03:33)
[2021-07-26 04:00] VITALS: BP 137/77
[2021-07-26 04:53] LABS: HEMATOCRIT 32.8 % (36-48); MEAN CORPUSCULAR HEMOGLOBIN 28.7 pg (27.0-33.0); MEAN CORPUSCULAR HGB CONC 31.7 g/dL (32.0-36.0); MEAN CORPUSCULAR VOLUME 90.4 fL (79-99); RED BLOOD CELL COUNT(AUTO) 3.63 MIL/uL (4.00-5.50); WHITE BLOOD COUNT (AUTO) 10.9 K/uL (4.8-10.8)
[2021-07-26 05:08] LABS: CREATININE 0.5 mg/dL (0.5-1.5); POTASSIUM 3.8 mmol/L (3.5-5.1)
[2021-07-26] MEDS: INSULIN HUMULIN R 100 UNIT/ML 3ML SQ SCH ×4 (06:50→20:42)
[2021-07-26] MEDS: ACETAMINOPHEN 500 MG TABLET PO SCH ×3 (06:50→22:56)
[2021-07-26] MEDS: LIOTHYRONINE SODIUM 5 MCG PO SCH ×2 (06:50→22:56)
[2021-07-26 07:30] VITALS: BP 120/66
[2021-07-26] MEDS: PANTOPRAZOLE 40 MG TAB DR PO SCH (08:05)
[2021-07-26] MEDS: FUROSEMIDE 20 MG TABLET PO SCH (08:05)
[2021-07-26] MEDS: POLYETHYLENE GLYCOL 3350 17 GM POWD.PACK PO SCH (08:06)
[2021-07-26] MEDS: CELECOXIB 200 MG CAP PO SCH ×2 (08:06→19:42)
[2021-07-26] MEDS: ASPIRIN 81 MG EC TAB PO SCH ×2 (08:06→19:43)
[2021-07-26] MEDS: DILTIAZEM 120MG SR CAP PO SCH (08:06)
[2021-07-26] MEDS: METFORMIN HCL 500 MG TABLET PO SCH ×2 (08:06→19:43)
[2021-07-26] MEDS: CALCIUM CARB 500MG PO PRN ×2 (08:06→19:43)
[2021-07-26] MEDS: GABAPENTIN 300 MG CAPSULE PO SCH ×3 (08:10→19:43)
[2021-07-26] MEDS: LEFLUNOMIDE 20 MG PO SCH (09:00)
[2021-07-26] MEDS: DAPAGLIFLOZIN PROPANEDIOL 10 MG PO SCH (09:00)
[2021-07-26] MEDS: 0.9%NACL 1000ML 1,000 ML IV SCH (10:30)
[2021-07-26 11:00] VITALS: BP 135/73
[2021-07-26 16:00] VITALS: BP 105/49
[2021-07-26] MEDS: TRAZODONE HCL 50 MG TAB PO SCH (19:43)
[2021-07-26] MEDS: ATORVASTATIN 10 MG TABLET PO SCH (19:43)
[2021-07-26 19:50] VITALS: BP 115/65
[2021-07-27] VITALS (7 sets, daily range): BP systolic 100–155; BP diastolic 64–96
[2021-07-27] MEDS: OXYCODONE HCL 5 MG TAB PO PRN ×4 (04:04→23:41)
[2021-07-27] MEDS: ACETAMINOPHEN 500 MG TABLET PO SCH ×3 (05:16→19:43)
[2021-07-27] MEDS: INSULIN HUMULIN R 100 UNIT/ML 3ML SQ SCH ×3 (05:44→20:20)
[2021-07-27] MEDS: DAPAGLIFLOZIN PROPANEDIOL 10 MG PO SCH (09:00)
[2021-07-27] MEDS: LEFLUNOMIDE 20 MG PO SCH (09:00)
[2021-07-27] MEDS: CELECOXIB 200 MG CAP PO SCH ×2 (09:01→19:43)
[2021-07-27] MEDS: GABAPENTIN 300 MG CAPSULE PO SCH ×3 (09:01→19:44)
[2021-07-27] MEDS: METFORMIN HCL 500 MG TABLET PO SCH ×2 (09:02→19:43)
[2021-07-27] MEDS: DILTIAZEM 120MG SR CAP PO SCH (09:02)
[2021-07-27] MEDS: PANTOPRAZOLE 40 MG TAB DR PO SCH (09:02)
[2021-07-27] MEDS: FUROSEMIDE 20 MG TABLET PO SCH (09:02)
[2021-07-27] MEDS: ASPIRIN 81 MG EC TAB PO SCH ×2 (09:03→19:43)
[2021-07-27] MEDS: POLYETHYLENE GLYCOL 3350 17 GM POWD.PACK PO SCH (09:03)
[2021-07-27] MEDS ORDERED: OXYC-38 PO (16:11)
[2021-07-27] MEDS ORDERED: AEC81 PO (16:11)
[2021-07-27] MEDS: TRAZODONE HCL 50 MG TAB PO SCH (19:43)
[2021-07-27] MEDS: ATORVASTATIN 10 MG TABLET PO SCH (19:44)
[2021-07-28 04:13] VITALS: BP 147/73
[2021-07-28] MEDS: OXYCODONE HCL 5 MG TAB PO PRN ×2 (05:20→09:15)
[2021-07-28] MEDS: ACETAMINOPHEN 500 MG TABLET PO SCH (05:20)
[2021-07-28] MEDS: LIOTHYRONINE SODIUM 5 MCG PO SCH (05:55)
[2021-07-28] MEDS: INSULIN HUMULIN R 100 UNIT/ML 3ML SQ SCH (06:01)
[2021-07-28 07:40] VITALS: BP 112/68
[2021-07-28] MEDS: DAPAGLIFLOZIN PROPANEDIOL 10 MG PO SCH (09:00)
[2021-07-28] MEDS: LEFLUNOMIDE 20 MG PO SCH (09:00)
[2021-07-28] MEDS: POLYETHYLENE GLYCOL 3350 17 GM POWD.PACK PO SCH (09:14)
[2021-07-28] MEDS: ASPIRIN 81 MG EC TAB PO SCH (09:15)
[2021-07-28] MEDS: METFORMIN HCL 500 MG TABLET PO SCH (09:15)
[2021-07-28] MEDS: DILTIAZEM 120MG SR CAP PO SCH (09:16)
[2021-07-28] MEDS: PANTOPRAZOLE 40 MG TAB DR PO SCH (09:16)
[2021-07-28] MEDS: GABAPENTIN 300 MG CAPSULE PO SCH (09:16)
[2021-07-28] MEDS: CELECOXIB 200 MG CAP PO SCH (09:16)
[2021-07-28] MEDS: FUROSEMIDE 20 MG TABLET PO SCH (09:17)
[2021-07-28] MEDS ORDERED: BISACODYL 10 MG SUPP.RECT RC PRN (14:30)
== END 2021-07-28 10:50 | disposition home or self-care (01) | DRG 470 ==
LOC: EDSTATUS 13:00 → DAHIP 07-25 08:15 → 3CH 07-25 16:08
PROVIDERS: ADMIT Orthopaedic Surgery; ATTEND Orthopaedic Surgery
PROC: 0SRD0J9 Replacement of Left Knee Joint with Synthetic Substitute, Cemented, Open Approach (ICD-10-PCS; principal; 2021-07-25 13:10)
DX: M17.12 Unilateral primary osteoarthritis, left knee (principal); D64.9 Anemia, unspecified; G89.29 Other chronic pain; I10 Essential (primary) hypertension; E78.5 Hyperlipidemia, unspecified; E11.9 Type 2 diabetes mellitus without complications; Z20.822 Contact with and (suspected) exposure to COVID-19; M79.7 Fibromyalgia; M06.9 Rheumatoid arthritis, unspecified; Z96.651 Presence of right artificial knee joint; Z90.711 Acquired absence of uterus with remaining cervical stump; Z87.891 Personal history of nicotine dependence; Z98.1 Arthrodesis status; Z88.8 Allergy status to other drugs, medicaments and biological substances
CPT/HCPCS: 36415; 80048; 82948; 85025; 85027; 87635; 87641; 94640; 97039; G0378; J0330; J0690; J1100; J1170; J1885; J2175; J2250; J2704; J3010; J3490; J7030

== ENCOUNTER → 2021-12-07 | Outpatient (CLI) | payer OTHER ==
[~2021-12-07] MED LIST changes: +AEC81 PO; +LEFL20TA18 PO; +LIOT5TAB11 PO; +METF-444 PO; -NAPR-1023 PO; +OXYC-38 PO; +ROSU5TAB12 PO; +TRAZ-185 PO
== END | disposition home or self-care (01) ==
LOC: RAH 07:40
PROVIDERS: ATTEND Family Medicine
DX: M79.604 Pain in right leg (principal)
CPT/HCPCS: 76882

== ENCOUNTER → 2022-03-08 | Outpatient (CLI) | payer OTHER ==
[2022-03-08 10:25] LABS: BASOPHILS % (AUTO) 0.8 % (0.0-5.0); EOSINOPHILS % (AUTO) 11.4 % (0.0-8.0); MEAN CORPUSCULAR HEMOGLOBIN 28.8 pg (27.0-33.0); MEAN CORPUSCULAR HGB CONC 31.4 g/dL (32.0-36.0); MEAN CORPUSCULAR VOLUME 91.5 fL (79-99); MONOCYTES % (AUTO) 6.4 % (3.0-13.0); NEUTROPHILS % (AUTO) 59.8 % (40.0-77.0); PLATELET COUNT (AUTO) 380 K/uL (130-400); RED BLOOD CELL COUNT(AUTO) 4.59 MIL/uL (4.00-5.50); WHITE BLOOD COUNT (AUTO) 10.3 K/uL (4.8-10.8)
[2022-03-08 10:29] LABS: APPEARANCE,URINE Clear (CLEAR); BILIRUBIN,URINE Negative (NEGATIVE); COLOR,URINE Dark Yellow (YELLOW); GLUCOSE, URINE (UA) Negative (NEGATIVE); KETONES,URINE Negative (NEGATIVE); LEUKOCYTE ESTERASE ,URINE Small (NEGATIVE); NITRATE,URINE Negative (NEGATIVE); OCCULT BLOOD,URINE Negative (NEGATIVE); PROTEIN,URINE Negative (NEGATIVE); UROBILINOGEN,URINE 0.2 mg/dL (0.2-1.0)
[2022-03-08 10:37] LABS: BACTERIA,URINE Rare /HPF (None Seen); MUCUS,URINE Few LPF (None Seen); RBC,URINE 0-1 /HPF (0-1); SQUAMOUS EPITHELIAL CELL,UR Rare /HPF (0-2)
[2022-03-08 10:48] LABS: ALBUMIN 3.5 g/dL (3.5-5.0); BILIRUBIN,TOTAL 0.3 mg/dL (0.2-1.0); CREATININE 0.5 mg/dL (0.5-1.5); CRP QUANTITATIVE 36.6 mg/L (0.00-9.0); POTASSIUM 3.8 mmol/L (3.5-5.1); THYROID STIMULATING HORMONE 2.17 uIU/mL (0.36-3.74); TOTAL PROTEIN, SERUM 7.2 g/dL (6.0-8.3); URIC ACID 2.9 mg/dL (2.6-7.2)
[2022-03-08 11:53] LABS: ERYTHROCYTE SEDIMENTATION RATE 35 MM/HR (0-30)
== END | disposition home or self-care (01) ==
LOC: LAB 08:49
PROVIDERS: ATTEND Nurse Practitioner Family
DX: Z00.00 Encounter for general adult medical examination without abnormal findings (principal); M25.50 Pain in unspecified joint; E11.9 Type 2 diabetes mellitus without complications
CPT/HCPCS: 36415; 80053; 80061; 81001; 82043; 83036; 84443; 84550; 85025; 85651; 86038; 86060; 86140; 86200; 86215; 86235; 86431

== ENCOUNTER 2024-07-22 15:00 | Inpatient (IN) | payer OTHER ==
[~2024-07-22] VITALS: Ht 172.7 cm; Wt 109.4 kg
[~2024-07-22 15:00] MED LIST changes: -AEC81 PO; -DILT120T15 PO; -FURO20TA4 PO; -GABA600T10 PO; -LEFL20TA18 PO; -LIOT5TAB11 PO; -METF-444 PO; -OXYC-38 PO; -PANT40TA54 PO; -ROSU5TAB12 PO
[2024-07-22 15:53] LABS: BASOPHILS # (AUTO) 0.09 K/uL (0.00-0.20); BASOPHILS % (AUTO) 0.9 % (0.0-5.0); EOSINOPHILS # (AUTO) 0.66 K/uL (0.00-0.70); EOSINOPHILS % (AUTO) 6.9 % (0.0-8.0); HEMATOCRIT 38.8 % (36-48); IMMATURE GRANULOCYTE ABSOLUTE 0.04 K/uL (0-1); LYMPHOCYTES # (AUTO) 2.5 K/uL (1.0-4.8); LYMPHOCYTES % (AUTO) 26.4 % (21.0-51.0); MEAN CORPUSCULAR HEMOGLOBIN 30.6 pg (27.0-33.0); MEAN CORPUSCULAR HGB CONC 32.2 g/dL (32.0-36.0); MEAN CORPUSCULAR VOLUME 94.9 fL (79-99); MONOCYTES # (AUTO) 0.9 K/uL (0.1-1.0); MONOCYTES % (AUTO) 9.1 % (3.0-13.0); NEUTROPHILS # (AUTO) 5.4 K/uL (1.8-7.7); NEUTROPHILS % (AUTO) 56.3 % (40.0-77.0); PLATELET COUNT (AUTO) 377 K/uL (130-400); RED BLOOD CELL COUNT(AUTO) 4.09 MIL/uL (4.00-5.50); RED CELL DISTRIBUTION WIDTH 18.2 % (11.0-15.5); WHITE BLOOD COUNT (AUTO) 9.6 K/uL (4.8-10.8)
[2024-07-22 15:58] LABS: APPEARANCE,URINE CLEAR (CLEAR); BILIRUBIN,URINE NEGATIVE (NEGATIVE); COLOR,URINE COLORLESS (YELLOW); GLUCOSE, URINE (UA) >=1000 mg/dL (NEGATIVE); KETONES,URINE NEGATIVE (NEGATIVE); LEUKOCYTE ESTERASE ,URINE NEGATIVE Leu/uL (NEGATIVE); NITRATE,URINE NEGATIVE (NEGATIVE); OCCULT BLOOD,URINE NEGATIVE (NEGATIVE); PROTEIN,URINE NEGATIVE (NEGATIVE); UROBILINOGEN,URINE 0.2 mg/dL (0.2-1.0)
[2024-07-22 16:00] LABS: ADD UA MICROSCOPIC YES
[2024-07-22 16:01] LABS: MUCUS,URINE RARE LPF (None Seen); RBC,URINE 0-1 /HPF (0-1); SQUAMOUS EPITHELIAL CELL,UR RARE /HPF (0-2)
[2024-07-22 16:04] LABS: CREATININE 0.8 mg/dL (0.5-1.0); POTASSIUM 4.1 mmol/L (3.5-5.1)
[2024-07-22 16:07] LABS: INR 0.95 (0.85-1.15); PROTHROMBIN TIME 10.3 SEC (9.6-11.6)
[2024-07-22 16:08] LABS: PARTIAL THROMBOPLASTIN TIME 26.2 SEC (26.3-35.5)
[2024-07-22 16:23] VITALS: BP 143/74; PULSE 101; RESP 18; TEMP 98.4
[2024-07-22] MEDS ORDERED: PRED5TAB PO (16:33)
[2024-07-22] MEDS ORDERED: SPIR100T5 PO (16:33)
[2024-07-22] MEDS ORDERED: AEC81 PO (16:33)
[2024-07-22] MEDS ORDERED: FOLI1 PO (16:33)
[2024-07-22] MEDS ORDERED: GABA300C PO (16:33)
[2024-07-22] MEDS ORDERED: METH2.5T6 PO (16:33)
[2024-07-22] MEDS ORDERED: CYCL-309 PO (16:33)
[2024-07-22] MEDS ORDERED: OMEP40CA21 PO (16:33)
[2024-07-22] MEDS ORDERED: DILT180C77 PO (16:33)
[2024-07-22] MEDS ORDERED: NAPR-1023 PO (16:33)
[2024-07-22] MEDS ORDERED: FURO40TA5 PO (16:33)
[2024-07-22] MEDS ORDERED: ozempic SQ (16:35)
[2024-07-22] MEDS ORDERED: ACET-2079 PO (16:40)
[2024-07-27] VITALS (13 sets, daily range): BP systolic 116–146; BP diastolic 54–85; PULSE 84–98; RESP 13–19; TEMP 97.4–98.1
[2024-07-27] MEDS: ceFAZolin SODIUM 2 GM VIAL ONE (08:06)
[2024-07-27] MEDS: 0.9%NACL 1000ML 1,000 ML IV ONE (08:06)
[2024-07-27] MEDS ORDERED: ondanSETRON 4MG INJ ONE (08:13)
[2024-07-27] MEDS ORDERED: proPOFol 10 MG/ML 20ML VIAL IV ONE (08:13)
[2024-07-27] MEDS ORDERED: FENTanyl CITRate PF 50 MCG/1 ML 2ML VIAL ONE ×2 (08:13→09:53)
[2024-07-27] MEDS ORDERED: rocuRONium bROMide 10MG/1ML 5ML VL ONE (08:13)
[2024-07-27] MEDS ORDERED: MIDAZOLAM HCL 1 MG/ML 2ML VIAL ONE (08:13)
[2024-07-27] MEDS ORDERED: ROPivacaine 0.5% 5MG/ML 30ML ONE (08:18)
[2024-07-27] MEDS ORDERED: dexaMETHasone SOD PHOSPHATE 10MG/ML 1ML VIAL ONE (08:19)
[2024-07-27] MEDS: ceFAZolin SODIUM 1 GM VIAL ONE (09:55)
[2024-07-27] MEDS ORDERED: NEOSTIGMINE METHYLSULFATE 1MG/ML IV ONE (10:39)
[2024-07-27] MEDS ORDERED: GLYCOPYRROLATE 0.2 MG/ML 5 ML VIAL ONE (10:39)
[2024-07-27] MEDS ORDERED: metoCLOPRAmide 10 MG/2 ML VIAL ONE (10:40)
[2024-07-27] MEDS ORDERED: CEPH500B PO (10:49)
[2024-07-27] MEDS: ketOROlac 30MG VIAL (30MG/ML) IVP ONE (12:32)
[2024-07-27] MEDS: acetaMINOPHEN WITH coDEINE 1 TAB TAB PO ONE (12:32)
== END 2024-07-27 13:08 | disposition home or self-care (01) | DRG 488 ==
LOC: DAHIP 07-27 07:30
PROVIDERS: ADMIT Orthopaedic Surgery; ATTEND Orthopaedic Surgery
PROC: 0QBF0ZZ Excision of Left Patella, Open Approach (ICD-10-PCS; principal; 2024-07-27 09:11)
DX: S82.092A Other fracture of left patella, initial encounter for closed fracture (principal); M97.12XA Periprosthetic fracture around internal prosthetic left knee joint, initial encounter; W18.39XA Other fall on same level, initial encounter; Y93.89 Activity, other specified; Y92.89 Other specified places as the place of occurrence of the external cause; Y99.8 Other external cause status; E78.5 Hyperlipidemia, unspecified; I10 Essential (primary) hypertension; E11.9 Type 2 diabetes mellitus without complications; M06.9 Rheumatoid arthritis, unspecified; Z90.710 Acquired absence of both cervix and uterus; Z79.899 Other long term (current) drug therapy
CPT/HCPCS: 36415; 80048; 81001; 82948; 85025; 85610; 85730; 86850; 86900; 86901; 88304; 88311; 93005; G0378; J0690; J1100; J1885; J2250; J2405; J2704; J2710; J2765; J2795; J3010; J3490; J7030; A4215; A4216; A4221; A4222; A4223; A4649; A4663; A6450; A9272